=== PATIENT | male | born 1980 | race Two or more races ===

== ENCOUNTER 2022-03-16 12:04 | Emergency (ER) | payer MEDICAID, SELFPAY ==
[2022-03-16 12:24] VITALS: BP 101/61; PULSE 67; RESP 18; TEMP 36.9; O2SAT 98; BMI 19.7
[2022-03-16 12:44] LABS: MANUAL DIFF FLAG NO
[2022-03-16 12:54] LABS: Appearance Urine Clear; Color Urine Yellow; Glucose Urine UA Negative (Negative); Leukocyte Esterase Urine Negative (Negative); Nitrite Urine Negative (Negative); PH 5.5 (5.0-8.0); Specific Gravity - Urine >= 1.030 (1.005-1.025); Urine Blood Negative (Negative); Urine Ketones Trace mg/dL (Negative); Urine Protein Trace mg/dL (Neg-Trace)
[2022-03-16 12:56] LABS: Basophils Percent Auto 0.9 % (0-2); Eosinophils Absolute Auto 0.1 X10*3/uL (0.0-0.4); Hematocrit 43.4 % (42.0-52.0); Imm Gran Abs Auto 0.01 X10*3/uL (0.00-0.03); Imm Gran Pct Auto 0.3 % (0.0-0.4); Lymphocytes Absolute Auto 1.1 X10*3/uL (1.2-4.9); Lymphocytes Percent Auto 30.7 % (20-40); Mean Corpuscular HGB Conc 34.6 g/dl (31.0-36.0); Mean Corpuscular Hemoglobin 31.8 pg (27.0-33.0); Mean Corpuscular Volume 91.9 fL (80.0-98.0); Monocytes Absolute Auto 0.4 X10*3/uL (0.1-1.2); Monocytes Percent Auto 10.9 % (2-11); Neutrophils Absolute Auto 1.9 x10*3/uL (2.0-8.3); Neutrophils Percent Auto 53.2 % (45-73); Platelet Count 226 X10*3/uL (160-400); Red Blood Count 4.72 X10*6/uL (4.60-5.80); Red Cell Distribution Width 11.6 % (11.0-16.0); White Blood Count 3.5 X10*3/uL (4.8-10.8)
[2022-03-16 13:02] LABS: Anion Gap 15 (12-20); Blood Urea Nitrogen 17 mg/dL (9-16); Calcium 9.3 mg/dL (8.4-10.2); Carbon Dioxide 24 mmol/L (22-29); Chloride 107 mmol/L (96-108); Creatinine Clr Calc Pharmacy 84.1; Estimated Glomerular Filt Rate > 60; Glucose Random 91 mg/dL (60-115); Potassium 4.1 mmol/L (3.3-5.1); Sodium 142 mmol/L (135-145)
[2022-03-16] MEDS: Magnesium Hydrox/Alum Hydrox 30 ML ORAL.SUSP PO (14:11)
[2022-03-16] MEDS: Famotidine 20 MG TABLET PO (14:11)
[2022-03-16 14:41] LABS: Alanine Aminotransferase 22 U/L (0-40); Albumin Level 4.7 g/dL (3.5-5.0); Alkaline Phosphatase 61 U/L (39-117); Aspartate Amino Transferase 20 U/L (5-37); Bilirubin Direct 0.6 mg/dL (0.0-0.5); Bilirubin Total 1.5 mg/dL (0.0-1.0); Lipase 26 U/L (8-78); Total Protein 7.2 g/dL (6.5-8.0)
--- NOTE | 2022-03-16 14:46 | ED_ITS ---
HPI - General Adult General Chief complaint: General Medical Stated complaint: chest pains Time Seen by Provider: 03/16/22 13:38 Source: patient Mode of arrival: ambulatory History of Present Illness HPI narrative: 41-year-old male with no significant past medical history presenting to the ED complaining epigastric pain radiating up to chest x months s/p drinking coffee. Also reports rash to scrotum x years. Denies pain worsening, states is just not going away. Was previously evaluated with PCP started on Omeprazole without relief. Denies nausea, vomiting, diarrhea, chest pain, shortness of breath, dysuria, hematuria, flank pain, discharge Patient is poor historian Onset (ago): month(s) Related Data Previous Rx's Medication Instructions Recorded aluminum-mag hydroxide-simethicone 5 ml PO 5XD PRN dyspepsia #30 mL 03/16/22 200 mg-200 mg-20 mg/5 mL oral susp (Maalox Advanced) Allergies Allergy/AdvReac Type Severity Reaction Status Date / Time Penicillins [PENICILLINS] Allergy Unknown UNKNOWN Unverified 04/16/20 14:49 Review of Systems Review of Systems: Constitutional: No Fever, No Chills, No Fatigue, No Malaise ENT/Mouth: No Hearing loss, No Ear Pain, No Nasal Congestion, No sore throat, No Rhinorrhea Eyes: No Eye Pain, No Swelling, No Redness, No Vision Changes Cardiovascular: No Chest Pain, No SOB, No Palpitations Respiratory: No Cough, No Sputum, No Dyspnea Gastrointestinal: No Nausea, No Vomiting, No Diarrhea, No Constipation, + Abdominal pain Genitourinary: No irregular bleeding, No Dysuria, No Urinary Frequency, No Hematuria, No Urinary Incontinence/retention, No Urgency, No Flank Pain, No Urinary Flow Changes, No Hesitancy Musculoskeletal: No joint pain, No Myalgias, No Joint Swelling Skin: + Skin Lesions, No rash Neuro: No Weakness, No Headache Yes all other systems are reviewed and are negative Constitutional: Constitutional: Reports as per [facility] Past Medical History Attestation statement: The following information was validated with the patient. Social History Social History Advance Directives: No Advance Directives Information Provided: No Physical Exam ED Vital Signs: Vital Signs - 24 hr 03/16/22 12:24 Temperature 98.4 F Pulse Rate 67 Respiratory Rate 18 Blood Pressure 101/61 Pulse Oximetry 98 Oxygen Delivery Method Room Air BMI result Body Mass Index 19.7 Const General: cooperative, healthy appearing and no acute distress Orientation/consciousness: patient oriented x3 Limitations: no limitations HENMT Head: Yes normal to inspection and Yes atraumatic Ears: hearing grossly normal bilaterally General nose exam: Normal external nose present Face and sinus: Yes normal facial exam Eyes General: appearance normal, both eyes and all related structures EOM: EOMs intact bilaterally Neck Neck: Yes normal visual inspection and Yes no meningeal signs Resp Effort & Inspection: normal respiratory effort and no respiratory distress Auscultation: clear to auscultation bilaterally Cardio Rate: regular rate Heart sounds: S1 normal heart sound present and S2 normal heart sound present GI Inspection: Yes normal to inspection Palpation (GI): Soft to palpation, nontender, no guarding and not rigid Other: No appreciable rash/lesions/erythema or swelling General: Yes no CVA tenderness Penis: normal penis Scrotum: scrotum normal, not erythematous and no ulcerations Testes: Testes normal Back/Spine/Pelvis Back: no CVA tenderness Skin Rashes: no rashes Wounds: no wounds Neuro General: patient oriented x3, tone normal and no meningeal signs Gait exam (Neuro): Normal gait present Extrem General: Yes normal to inspection Course Course Course Narrative: -leukopenia. T bili and D bili mildly elevated. Troponin negative, labs otherwise unremarkable -UA negative Medical Decision Making [facility] Narrative Medical decision making narrative: 41-year-old male with no significant past medical history presenting to the ED complaining epigastric pain radiating up to chest x months s/p drinking coffee. Also reports rash to scrotum x years. On exam vital signs stable, NAD, abdomen soft/nontender, no facial rash shoes area. Concern for GERD/gastritis. Low suspicion for pancreatitis/cholecystitis/lithiasis or appendicitis/diverticulitis. Symptoms atypical for ACS. Low suspicion for STI, no evidence of cellulitis Plan: labs, Recommended continuation of omeprazole, will add Maalox and recommended PCP follow-up Medical Records Medical records reviewed: Yes I reviewed the patient's medical records. Lab Data Lab results reviewed: Yes I reviewed the patient's lab results. Result diagrams: 03/16/22 12:36 03/16/22 12:36 Labs: Lab Results 03/16/22 03/16/22 03/16/22 Range/Units 12:36 12:36 12:36 WBC 3.5 L (4.8-10.8) X10*3/uL RBC 4.72 (4.60-5.80) X10*6/uL Hgb 15.0 (14.0-18.0) g/dl Hct 43.4 (42.0-52.0) % MCV 91.9 (80.0-98.0) fL MCH 31.8 (27.0-33.0) pg MCHC 34.6 (31.0-36.0) g/dl RDW 11.6 (11.0-16.0) % Plt Count 226 (160-400) X10*3/uL MPV 11.0 (9.4-12.4) fL Immature Gran % (Auto) 0.3 (0.0-0.4) % Neut % (Auto) 53.2 (45-73) % Lymph % (Auto) 30.7 (20-40) % [place] % (Auto) 10.9 (2-11) % Eos % (Auto) 4.0 (0-4) % Baso % (Auto) 0.9 (0-2) % Lymph # (Auto) 1.1 L (1.2-4.9) X10*3/uL [place] # (Auto) 0.4 (0.1-1.2) X10*3/uL Eos # (Auto) 0.1 (0.0-0.4) X10*3/uL Baso # (Auto) 0.0 (0.0-0.2) X10*3/uL Abs Immat Gran (auto) 0.01 (0.00-0.03) X10*3/uL Absolute Neuts (auto) 1.9 L (2.0-8.3) x10*3/uL Absolute Nucleated RBC 0.000 (0.0-0.012) X10*3/uL Nucleated RBC % (auto) 0.0 (0.0-0.2) /100WBC Sodium 142 (135-145) mmol/L Potassium 4.1 (3.3-5.1) mmol/L Chloride 107 (96-108) mmol/L Carbon Dioxide 24 (22-29) mmol/L Anion Gap 15 (12-20) BUN 17 H (9-16) mg/dL Creatinine 0.87 (0.5-1.4) mg/dL Estim Creat Clear Calc 84.1 Estimated GFR > 60 Random Glucose 91 (60-115) mg/dL Calcium 9.3 (8.4-10.2) mg/dL Total Bilirubin 1.5 H (0.0-1.0) mg/dL Direct Bilirubin 0.6 H (0.0-0.5) mg/dL AST 20 (5-37) U/L ALT 22 (0-40) U/L Alkaline Phosphatase 61 (39-117) U/L Total Protein 7.2 (6.5-8.0) g/dL Albumin 4.7 (3.5-5.0) g/dL Lipase 26 (8-78) U/L Urine Color Yellow Urine Appearance Clear Urine pH 5.5 (5.0-8.0) Ur Specific [place] >= 1.030 H (1.005-1.025) Urine Protein Trace (Neg-Trace) mg/dL Urine Glucose (UA) Negative (Negative) mg/dL Urine Ketones Trace (Negative) mg/dL Urine Blood Negative (Negative) Urine Nitrite Negative (Negative) Ur Leukocyte Esterase Negative (Negative) Discharge Plan Discharge Clinical Impression: Epigastric pain Patient Disposition: Home, Self-Care Instructions: Epigastric Pain (ED) Additional Instructions: your blood work was reassuring Continue taking previously prescribed omeprazole. In addition start taking Maalox. Avoid spicy foods, sweets, chocolate. eat 1 hour before lying down Follow-up with GI. If symptoms persist or worsen return to the emergency department. Prescriptions: New alum-mag hydroxide-simeth [Maalox Advanced] 200-200-20 mg/5 mL suspension 5 ml PO 5XD PRN (Reason: dyspepsia) Qty: 30 0RF Rx Instructions: administer between meals and at bedtime Referrals: [facility] [Primary Care Provider] - Jsos Simeon [Physician] - 1 week (as needed)
[2022-03-16 14:53] LABS: Troponin-I High Sensitivity < 3.5 ng/L (<3.5-35.0)
== END 2022-03-16 15:28 | disposition home or self-care (01) ==
PROVIDERS: Physician Assistant; Emergency Provider Emergency Medicine
DX: R10.13 Epigastric pain (principal); D72.819 Decreased white blood cell count, unspecified
CPT/HCPCS: 36415; 80048; 80076; 81003; 83690; 84484; 85025; 99283

== ENCOUNTER 2022-03-28 11:45 | Emergency (ER) | payer MEDICAID, SELFPAY ==
--- NOTE | ~2022-03-28 | US_ITS ---
EXAMINATION: US SCROTUM CLINICAL INFORMATION: Pain, redness and swelling. COMPARISON: None TECHNIQUE: A sonogram of the scrotum was performed assessing mckeon-scale appearance and color Doppler flow. Spectral Doppler analysis of the arterial and venous flow were performed in the testes bilaterally. FINDINGS: RIGHT: Right testicle measures 3.3 x 1.7 x 2.8 cm, volume 9 mL. No focal testicular parenchymal lesions are visualized. Spectral Doppler analysis of the arterial and venous flow is normal in the right testis. Right epididymal head is normal in size. No right hydrocele or varicocele is seen. Right epididymal Doppler flow is normal. LEFT: Left testicle measures 3 x 1.5 x 2.8 cm, volume 6 mL. No focal testicular parenchymal lesions are visualized. Spectral Doppler analysis of the arterial and venous flow is normal in the left testis. Left epididymal head is normal in size. There are 2 left epididymal head cysts measuring 2 and 3 mm. No left hydrocele or varicocele is seen. Left epididymal Doppler flow is normal. US/US scrotum doppler IMPRESSION: Small testicles. 2 small left epididymal head cysts. Otherwise unremarkable exam.
--- NOTE | ~2022-03-28 | US_ITS ---
EXAMINATION: US SCROTUM CLINICAL INFORMATION: Pain, redness and swelling. COMPARISON: None TECHNIQUE: A sonogram of the scrotum was performed assessing mckeon-scale appearance and color Doppler flow. Spectral Doppler analysis of the arterial and venous flow were performed in the testes bilaterally. FINDINGS: RIGHT: Right testicle measures 3.3 x 1.7 x 2.8 cm, volume 9 mL. No focal testicular parenchymal lesions are visualized. Spectral Doppler analysis of the arterial and venous flow is normal in the right testis. Right epididymal head is normal in size. No right hydrocele or varicocele is seen. Right epididymal Doppler flow is normal. LEFT: Left testicle measures 3 x 1.5 x 2.8 cm, volume 6 mL. No focal testicular parenchymal lesions are visualized. Spectral Doppler analysis of the arterial and venous flow is normal in the left testis. Left epididymal head is normal in size. There are 2 left epididymal head cysts measuring 2 and 3 mm. No left hydrocele or varicocele is seen. Left epididymal Doppler flow is normal. US/US scrotum IMPRESSION: Small testicles. 2 small left epididymal head cysts. Otherwise unremarkable exam.
[2022-03-28 11:51] VITALS: BP 104/68; PULSE 69; RESP 18; TEMP 37.2; O2SAT 100; BMI 20.5
--- NOTE | 2022-03-28 17:08 | ED_ITS ---
HPI - Male Genitourinary General Chief complaint: Urogenital-Male Stated complaint: Testicle issues Time Seen by Provider: 03/28/22 17:08 History of Present Illness HPI Narrative: Patient complains of redness and itching under 4 scan and also on scrotum for over a week, he can retract the foreskin but it sometimes feels sticky He has no testicular pain or swelling, he has no discharge no dysuria no change to urinary habits Related Data Previous Rx's Medication Instructions Recorded aluminum-mag hydroxide-simethicone 5 ml PO 5XD PRN dyspepsia #30 mL 03/16/22 200 mg-200 mg-20 mg/5 mL oral susp (Maalox Advanced) clotrimazole 1 % topical cream 1 appl topical BID PRN rash #30 03/28/22 grams hydrocortisone 1 % topical cream 1 appl topical TID PRN rash #28.4 03/28/22 grams Allergies Allergy/AdvReac Type Severity Reaction Status Date / Time Penicillins [PENICILLINS] Allergy Unknown UNKNOWN Unverified 04/16/20 14:49 Review of Systems Review of Systems: Positive for rash under foreskin and on scrotum Negatives are no fever no chills no dizziness no weakness no headache no abdo ramez pain no nausea or vomiting no burning with urination no frequency of urination no penile discharge no testicular pain or swelling no other ulcerations or lesions no other rash Yes all other systems are reviewed and are negative [facility] Past Medical History Source: nursing notes reviewed Social History Social History Advance Directives: No Advance Directives Information Provided: No Physical Exam Vital Signs: Vital Signs: Last Vital Signs Temp 98.9 F 03/28/22 11:51 Pulse 69 03/28/22 11:51 Resp 18 03/28/22 11:51 BP 104/68 03/28/22 11:51 Pulse Ox 100 03/28/22 11:51 O2 Del Method 03/28/22 11:51 BMI result Body Mass Index 20.5 General appearance is comfortable no distress Head is normocephalic atraumatic Neck is supple Respiratory distress Abdomen soft nontender Genital exam there is some whitish material on the head of the penis under the foreskin the foreskin retracts easily, there is also some mild redness but no warmth or tenderness On the scrotum there is also an area of very mild redness which is nontender not warm there are no wounds no lesions no ulcerations no vesicular rash, no discharge no testicular tenderness no testicular swelling Extremities full range of motion x4 Course Course Course Narrative: Patient is treated with creams for mild balanitis, advised to follow with urologist for possible circumcision Rash on scrotum is a mild red itchy rash possibly heat rash and he is recommended to put the same creams on there Discharge Plan Discharge Clinical Impression: Balanitis Patient Disposition: Home, Self-Care Additional Instructions: Apply creams as directed You may need a circumcision so follow with urologist , you may need referral from her primary care doctor Return any time if worse Prescriptions: New clotrimazole 1 % cream 1 appl topical BID PRN (Reason: rash) Qty: 30 0RF hydrocortisone 1 % cream 1 appl topical TID PRN (Reason: rash) Qty: 28.4 0RF No Action alum-mag hydroxide-simeth [Maalox Advanced] 200-200-20 mg/5 mL suspension 5 ml PO 5XD PRN (Reason: dyspepsia) Qty: 30 0RF Rx Instructions: administer between meals and at bedtime Referrals: Walt Marie MD [Physician] - (Patient with balanitis, may need circumcision)
[2022-03-28 17:23] LABS: Glucose, Whole Blood 68 mg/dL (60-115)
== END 2022-03-28 17:36 | disposition home or self-care (01) ==
PROVIDERS: Emergency Provider Emergency Medicine
DX: N48.1 Balanitis (principal); R21 Rash and other nonspecific skin eruption
CPT/HCPCS: 76870; 82947; 93975; 99282; 99284

== ENCOUNTER 2022-04-05 11:26 | Emergency (ER) | payer MEDICAID, SELFPAY ==
[2022-04-05 11:31] VITALS: BP 109/60; PULSE 69; RESP 16; TEMP 36.2; O2SAT 100; BMI 22.3
--- NOTE | 2022-04-05 12:08 | ED.GENADULT ---
HPI - General Adult General Chief complaint: General Medical Stated complaint: Chest pain Time Seen by Provider: 04/05/22 12:07 Source: patient Mode of arrival: ambulatory Limitations: no limitations History of Present Illness HPI narrative: Patient is a 41 year old male presenting to the emergency department today with acid reflux. Patient states that he was seen a little while ago for the same thing and was given medication that helped but he ran out of the medication and he would like more. Patient denies any dizziness, lightheadedness, abdominal pain, nausea, vomiting, fever, chills, blurry vision, double vision, loss of vision, chest pain, difficulty breathing, shortness of breath, back pain, night sweats, pain with urination, increased urinary frequency, increased urinary urgency, blood in his urine or stool, syncope or a near syncopal episode, recent trauma or falls, bowel incontinence, bladder incontinence, bowel retention, bladder retention, or any other complaints at this time. Radiation: non-radiation Severity: mild Severity scale (1-10): 2 Quality: burning Pain Consistency: intermittent Relieving factors: none Exacerbating factors: none Associated symptoms: denies other symptoms Treatments prior to arrival: none Related Data Previous Rx's Medication Instructions Recorded aluminum-mag hydroxide-simethicone 5 ml PO 5XD PRN dyspepsia #30 mL 03/16/22 200 mg-200 mg-20 mg/5 mL oral susp (Maalox Advanced) clotrimazole 1 % topical cream 1 appl topical BID PRN rash #30 03/28/22 grams hydrocortisone 1 % topical cream 1 appl topical TID PRN rash #28.4 03/28/22 grams aluminum-mag hydroxide-simethicone 5 ml PO 5XD PRN indigestion #355 mL 04/05/22 200 mg-200 mg-20 mg/5 mL oral susp (Maalox Advanced) pantoprazole 40 mg tablet,delayed 40 mg PO DAILY #30 tabs 04/05/22 release (Protonix) Allergies Allergy/AdvReac Type Severity Reaction Status Date / Time Penicillins [PENICILLINS] Allergy Unknown UNKNOWN Verified 04/05/22 11:31 Review of Systems Constitutional: Constitutional: Reports no additional constitutional complaints, Denies chills, Denies fever(s) and Denies night sweats Eyes: Eyes: Reports no additional eye complaints, Denies blurry vision, Denies change in vision, Denies diplopia, Denies eye discharge, Denies loss of vision and Denies eye pain ENT: Denies dizziness Cardiovascular: Cardiovascular: Reports no additional cardiovascular complaints, Denies chest pain, Denies lightheadedness, Denies Loss of Consciousness and Denies dyspnea Respiratory: Respiratory: Reports no additional respiratory complaints and Denies dyspnea Gastrointestinal: Gastrointestinal: Reports no additional gastrointestinal complaints, Denies abdominal pain, Denies melena, Denies hematochezia, Denies change in bowel habits and Denies change in stool character Genitourinary: Genitourinary: Reports no additional male genitourinary complaints, Denies hematuria, Denies oliguria, Denies difficulty urinating, Denies dysuria, Denies urinary frequency, Denies urinary hesitancy, Denies urinary incontinence and Denies urinary urgency Musculoskeletal: Musculoskeletal: Reports no additional musculoskeletal complaints, Denies numbness and Denies tingling Neurologic: Denies dizziness, Denies loss of vision, Denies numbness and Denies tingling Psychiatric: Psychiatric: Reports no additional psychiatric complaints Endocrine: Endocrine: Reports no additional endocrine complaints Hematologic/Lymphatic: Hematologic/Lymphatic: Reports no additional hematologic/lymphatic complaints Allergic/Immunologic: Allergic/Immunologic: Reports no additional allergic/immunologic complaints [facility] Past Medical History Attestation statement: The following information was validated with the patient. Source: old records reviewed Social History Social History Advance Directives: No Advance Directives Information Provided: Yes Physical Exam ED Vital Signs: Vital Signs - 24 hr 04/05/22 11:31 Temperature 97.1 F Pulse Rate 69 Respiratory Rate 16 Blood Pressure 109/60 Pulse Oximetry 100 Oxygen Delivery Method Room Air BMI result Body Mass Index 22.3 Const General: cooperative, no acute distress, alert and awake Nutritional Appearance: well nourished Orientation/consciousness: patient oriented x3 Limitations: no limitations HENMT Head: Yes normal to inspection and Yes atraumatic Ears: hearing grossly normal bilaterally and external ears normal General nose exam: Normal external nose present, no nasal discharge noted and no epistaxis Face and sinus: Yes normal facial exam, No abrasion and No laceration Mouth: Normal oral and palatal mucosa present, no drooling and no muffled voice Eyes General: appearance normal, both eyes and all related structures Periorbital: periorbital findings normal Eyelids: Yes eyelids normal Conjunctivae: conjunctivae normal Pupils: Equal, round and reactive pupils present EOM: EOMs intact bilaterally Neck Neck: Yes normal visual inspection, Yes full ROM and Yes no lymphadenopathy Chest Chest palpation & inspection: normal inspection of the chest Resp Effort & Inspection: normal respiratory effort and able to speak in complete sentences Auscultation: clear to auscultation bilaterally Cardio Rate: regular rate Rhythm: regular rhythm GI Inspection: Yes normal to inspection Neuro General: patient oriented x3 and moves all extremities Cranial nerves: Yes Equal, round and reactive pupils present Cognition (Neuro): normal cognition Motor exam (neuro): 5/5 motor strength present throughout Sensory Exam: Normal double simultaneous stimulation for sensation Coordination: [id number] test normal Extrem General: Yes normal to inspection, Yes full ROM and Yes capillary refill normal Psych Appearance: grossly normal Mental Status: mental status grossly normal Affect: normal affect Attitude: cooperative Thought process: Normal thought process present Thought content: Normal thought content present Insight: Good insight present (Psych) Medical Decision Making [facility] Narrative Medical decision making narrative: Patient is a 41 year old male presenting to the emergency department today with acid reflux. Patient's physical exam was unremarkable. I explained my physical exam findings to the patient. I answered all questions asked by the patient. I stressed the importance of the patient taking his medication as prescribed. I stressed the importance of the patient following up with his primary care provider and a GI specialist. I stressed the importance of the patient returning to the emergency department immediately if her symptoms were to worsen or if she were to develop any dizziness, shortness of breath, difficulty breathing, chest pain, blurry vision, loss of vision, nausea, vomiting, abdominal pain, fever, chills, back pain, or any other complaints. Patient verbalized agreement and understanding with this treatment plan and discharge. Medical Records Medical records reviewed: Yes I reviewed the patient's medical records. Discharge Plan Discharge Clinical Impression: Chronic GERD Patient Disposition: Home, Self-Care Instructions: Gastroesophageal Reflux Disease (ED) Additional Instructions: Follow up with your primary care provider and a GI specialist. Return to the emergency department immediately if your symptoms worsen or if you develop any dizziness, shortness of breath, difficulty breathing, chest pain, blurry vision, loss of vision, nausea, vomiting, abdominal pain, fever, chills, back pain, or any other complaints. Prescriptions: New alum-mag hydroxide-simeth [Maalox Advanced] 200-200-20 mg/5 mL suspension 5 ml PO 5XD PRN (Reason: indigestion) Qty: 355 0RF Rx Instructions: administer between meals and at bedtime pantoprazole [Protonix] 40 mg tablet,delayed release (DR/EC) 40 mg PO DAILY Qty: 30 0RF No Action alum-mag hydroxide-simeth [Maalox Advanced] 200-200-20 mg/5 mL suspension 5 ml PO 5XD PRN (Reason: dyspepsia) Qty: 30 0RF Rx Instructions: administer between meals and at bedtime clotrimazole 1 % cream 1 appl topical BID PRN (Reason: rash) Qty: 30 0RF hydrocortisone 1 % cream 1 appl topical TID PRN (Reason: rash) Qty: 28.4 0RF Referrals: [facility] [place] [facility]Provider Group] Center,[facility] [Primary Care Provider] - Interventions: ED Discharge Assessment Last Done: 04/05/22 12:39 Discharge Date/Time: 04/05/22 12:42 Print Language: Czech
== END 2022-04-05 12:42 | disposition home or self-care (01) ==
PROVIDERS: Emergency Provider Emergency Medicine
DX: K21.9 Gastro-esophageal reflux disease without esophagitis (principal); R07.89 Other chest pain; Z79.899 Other long term (current) drug therapy
CPT/HCPCS: 99282; 99283

== ENCOUNTER 2022-04-20 09:09 | Emergency (ER) | payer MEDICAID, SELFPAY ==
[2022-04-20 09:45] VITALS: BP 104/69; PULSE 66; RESP 15; TEMP 35.8; O2SAT 100; BMI 22.3
--- NOTE | 2022-04-20 10:42 | ED.MALEGU ---
HPI - Male Genitourinary General Chief complaint: Urogenital-Male Stated complaint: rash from medication Time Seen by Provider: 04/20/22 10:08 Source: patient Mode of arrival: ambulatory Limitations: no limitations History of Present Illness HPI Narrative: 41 yo male no PMH here with c/o penile rash seen on 04/05 started on clotrimazole and hydrocortisone states his penile area looks better but still feels there are bumps and redness to his scrotum. He denies fevers, abdominal pain. No issues urinating. He states he completed all topical therapies. He had sex 2 months ago with a condom. MD Complaint: other (rash on scrotum) Onset (ago): week(s) (3) Duration: intermittent Location: penis, right testicle and left testicle Severity: mild Quality: other (itching) Relieving factors: none Exacerbating factors: none Associated symptoms: Reports denies other symptoms Related Data Previous Rx's Medication Instructions Recorded aluminum-mag hydroxide-simethicone 5 ml PO 5XD PRN dyspepsia #30 mL 03/16/22 200 mg-200 mg-20 mg/5 mL oral susp (Maalox Advanced) clotrimazole 1 % topical cream 1 appl topical BID PRN rash #30 03/28/22 grams hydrocortisone 1 % topical cream 1 appl topical TID PRN rash #28.4 03/28/22 grams aluminum-mag hydroxide-simethicone 5 ml PO 5XD PRN indigestion #355 mL 04/05/22 200 mg-200 mg-20 mg/5 mL oral susp (Maalox Advanced) pantoprazole 40 mg tablet,delayed 40 mg PO DAILY #30 tabs 04/05/22 release (Protonix) mupirocin 2 % topical ointment 1 appl topical BID 7 days #15 grams 04/20/22 Allergies Allergy/AdvReac Type Severity Reaction Status Date / Time Penicillins [PENICILLINS] Allergy Unknown UNKNOWN Verified 04/05/22 11:31 Review of Systems Review of Systems: Constitutional : No Fever, No Chills ENT/Mouth : No sore throat, No Rhinorrhea Eyes: No Eye Pain, No Swelling, No Redness Cardiovascular : No Chest Pain, No SOB Respiratory : No Cough, No Sputum Gastrointestinal : No Nausea, No Vomiting, No Diarrhea, No abdominal Pain Genitourinary : No Dysuria, No Hematuria Musculoskeletal : No joint pain, No Myalgias, No Joint Swelling Skin : No Skin Lesions, positive skin rash Neuro : No Weakness, No Numbness, No Headache PMFSH Past Medical History Medical History No pertinent past medical history Social History Social History (Updated 04/20/22 @ 11:10 by Melba hCung DO) Patient Tobacco Use Status: Never used Tobacco Advance Directives: No Advance Directives Information Provided: No Physical Exam Vital Signs: Vital Signs: Last Vital Signs Temp 96.4 F L 04/20/22 09:45 Pulse 66 04/20/22 09:45 Resp 15 04/20/22 09:45 BP 104/69 04/20/22 09:45 Pulse Ox 100 04/20/22 09:45 O2 Del Method 04/20/22 09:45 BMI result Body Mass Index 22.3 Appearance: Alert. Oriented X3. No acute distress. Eyes: Pupils equal, round and reactive to light. ENT: Pharynx normal. Neck: Normal inspection. Neck supple. CVS: Normal heart rate and rhythm. Pulses normal. Respiratory: No respiratory distress. Breath sounds normal. Abdomen: Soft and non-tender. : uncircumcised normal appearing penis no rash, scrotum no warmth, swelling, small red papule noted on midline otherwise it appears normal Skin: Skin warm and dry. Normal skin color. Extremities: No lower extremity edema. Neuro: Oriented X 3. No motor deficit. No sensory deficit. MDM - Male Genitourinary MDM Narrative Medical decision making narrative: 41 yo male with recent balanitis completed cream penis appears normal - he is c/o redness and lesions on scrotum at this time they are flat and no signs of cellulitis. Will test for syphilils and start on mupirocin. Discharge Plan Discharge Clinical Impression: Rash Patient Disposition: Home, Self-Care Instructions: Acute Rash (ED) Additional Instructions: return to ED for any worsening symptoms or concerns you were tested for syphillis if positive we will call you please practice safe sex Prescriptions: New mupirocin 2 % ointment 1 appl topical BID 7 Days Qty: 15 0RF No Action alum-mag hydroxide-simeth [Maalox Advanced] 200-200-20 mg/5 mL suspension 5 ml PO 5XD PRN (Reason: indigestion) Qty: 355 0RF Rx Instructions: administer between meals and at bedtime pantoprazole [Protonix] 40 mg tablet,delayed release (DR/EC) 40 mg PO DAILY Qty: 30 0RF alum-mag hydroxide-simeth [Maalox Advanced] 200-200-20 mg/5 mL suspension 5 ml PO 5XD PRN (Reason: dyspepsia) Qty: 30 0RF Rx Instructions: administer between meals and at bedtime clotrimazole 1 % cream 1 appl topical BID PRN (Reason: rash) Qty: 30 0RF hydrocortisone 1 % cream 1 appl topical TID PRN (Reason: rash) Qty: 28.4 0RF Stand Alone Forms: Work/School Release
[2022-04-20 12:05] LABS: Syphilis Screen Nonreactive (Nonreactive)
== END 2022-04-20 11:52 | disposition home or self-care (01) ==
PROVIDERS: Emergency Provider Emergency Medicine
DX: R21 Rash and other nonspecific skin eruption (principal)
CPT/HCPCS: 36415; 86780; 99283

== ENCOUNTER 2022-04-29 09:08 | Emergency (ER) | payer MEDICAID, SELFPAY ==
[2022-04-29 09:17] VITALS: BP 118/69; PULSE 65; RESP 14; TEMP 36.4; O2SAT 100; BMI 24.0
--- NOTE | 2022-04-29 09:22 | ED_ITS ---
HPI - General Adult General Chief complaint: General Medical Stated complaint: Rash Time Seen by Provider: 04/29/22 09:22 Source: patient Mode of arrival: ambulatory Limitations: no limitations History of Present Illness HPI narrative: 41-year-old male presents to the ER for evaluation of a red and itchy rash of his penis and testicles. He was seen here on March 28 for balanitis, was prescribed steroids and anti fungal cream. He also presented back here on April 20 with possible folliculitis and was prescribed mupirocin. He reports the mupirocin helped his symptoms and returned his skin color to normal. He reports the last 2 days after running out of the mupirocin his testicles and posterior penis are red and itchy. He denies any testicular pain. No urethral discharge. Denies any lesions. MD complaint: testicular rash Onset (ago): day(s) Location: genitals Radiation: non-radiation Severity: mild Quality: other (itching) Relieving factors: medication Exacerbating factors: none Associated symptoms: denies other symptoms Treatments prior to arrival: none Related Data Previous Rx's Medication Instructions Recorded aluminum-mag hydroxide-simethicone 5 ml PO 5XD PRN dyspepsia #30 mL 03/16/22 200 mg-200 mg-20 mg/5 mL oral susp (Maalox Advanced) clotrimazole 1 % topical cream 1 appl topical BID PRN rash #30 03/28/22 grams hydrocortisone 1 % topical cream 1 appl topical TID PRN rash #28.4 03/28/22 grams aluminum-mag hydroxide-simethicone 5 ml PO 5XD PRN indigestion #355 mL 04/05/22 200 mg-200 mg-20 mg/5 mL oral susp (Maalox Advanced) pantoprazole 40 mg tablet,delayed 40 mg PO DAILY #30 tabs 04/05/22 release (Protonix) mupirocin 2 % topical ointment 1 appl topical BID 7 days #15 grams 04/20/22 mupirocin 2 % topical ointment 1 appl topical BID #15 grams 04/29/22 Allergies Allergy/AdvReac Type Severity Reaction Status Date / Time Penicillins [PENICILLINS] Allergy Unknown UNKNOWN Verified 04/05/22 11:31 Review of Systems Review of Systems: Constitutional: No Fever, No Chills ENT/Mouth: No sore throat, No Rhinorrhea, No Swallowing Difficulty Eyes: No Eye Pain, No Swelling, No Redness Cardiovascular: No Chest Pain, No SOB, No Orthopnea, No Edema Respiratory: No Cough, No Sputum, No Wheezing, No dyspnea Gastrointestinal: No Nausea, No Vomiting, No Diarrhea, No abdominal Pain Genitourinary: No Dysuria, No Urinary Frequency, No Hematuria Musculoskeletal: No joint pain, No Myalgias Skin: No Skin Lesions, + rash Psych: + Anxiety/Panic, No Depression Heme/Lymph: No Bruising, No Lymphadenopathy PMFSH Past Medical History Medical History No pertinent past medical history Social History Social History (Updated 04/20/22 @ 11:10 by Melba Chung DO) Patient Tobacco Use Status: Never used Tobacco Advance Directives: No Advance Directives Information Provided: Yes Physical Exam ED Vital Signs: Vital Signs - 24 hr 04/29/22 09:17 Temperature 97.6 F Pulse Rate 65 Respiratory Rate 14 Blood Pressure 118/69 Pulse Oximetry 100 Oxygen Delivery Method Room Air BMI result Body Mass Index 24.0 Appearance: Alert. Oriented X3. No acute distress. HEENT: normal inspection CVS: Normal heart rate and rhythm. Pulses normal. Respiratory: No respiratory distress. Skin: Skin warm and dry. Normal skin color. Normal skin turgor. No rashes. : normal inspection of external genitalia, uncircumcised penis with easily retractable foreskin, underside of the penile shaft and anterior testicles with mild generalized blanching erythema, no pustules, no rash, no warmth. Extremities: normal inspection. Neuro: Oriented X 3. grossly normal, nonfocal Course Course Course Narrative: 41-year-old male presents to the ER for evaluation of a pruritic and erythematous rash on his genitals. Upon inspection there does not appear to be any acute abnormality. He was seen here several times for this in the last 1 mo nth. There is no evidence of acute or active of balanitis, no evidence of cellulitis. No folliculitis. He is requesting additional mupirocin because this made his skin coloration normal, it is a benign medication and we can give a short course of this but he was advised to follow up with Urology for further evaluation and treatment. Stable for discharge. Discharge Plan Discharge Clinical Impression: Rash of genitalia Patient Disposition: Home, Self-Care Instructions: Acute Rash (ED) Additional Instructions: Your exam today appeared normal. You can use the prescribed cream to attempt to improve the redness but this may not improve. Recommend following up with Urology for further evaluation and treatment. Prescriptions: New mupirocin 2 % ointment 1 appl topical BID Qty: 15 0RF No Action alum-mag hydroxide-simeth [Maalox Advanced] 200-200-20 mg/5 mL suspension 5 ml PO 5XD PRN (Reason: indigestion) Qty: 355 0RF Rx Instructions: administer between meals and at bedtime pantoprazole [Protonix] 40 mg tablet,delayed release (DR/EC) 40 mg PO DAILY Qty: 30 0RF mupirocin 2 % ointment 1 appl topical BID 7 Days Qty: 15 0RF alum-mag hydroxide-simeth [Maalox Advanced] 200-200-20 mg/5 mL suspension 5 ml PO 5XD PRN (Reason: dyspepsia) Qty: 30 0RF Rx Instructions: administer between meals and at bedtime clotrimazole 1 % cream 1 appl topical BID PRN (Reason: rash) Qty: 30 0RF hydrocortisone 1 % cream 1 appl topical TID PRN (Reason: rash) Qty: 28.4 0RF Referrals: [facility] [Provider Group] Interventions: ED Discharge Assessment Last Done: 04/29/22 10:11 Discharge Date/Time: 04/29/22 10:05
== END 2022-04-29 10:05 | disposition home or self-care (01) ==
PROVIDERS: Emergency Provider Emergency Medicine
DX: R21 Rash and other nonspecific skin eruption (principal); N50.812 Left testicular pain; N50.811 Right testicular pain; Z79.899 Other long term (current) drug therapy
CPT/HCPCS: 99283

== ENCOUNTER 2022-05-09 09:35 | Emergency (ER) | payer MEDICAID, SELFPAY ==
[2022-05-09 09:56] VITALS: BP 100/60; PULSE 68; RESP 16; TEMP 36.9; O2SAT 98; BMI 22.3
--- NOTE | 2022-05-09 10:17 | ED_ITS ---
HPI - General Adult General Chief complaint: General Medical Stated complaint: med refill Time Seen by Provider: 05/09/22 10:12 Source: patient Mode of arrival: ambulatory Limitations: no limitations History of Present Illness HPI narrative: This is a 41-year-old male who presents seeking refill firm appear is seen. Patient has had several visits to our emergency room for balanitis. He was initially prescribed hydrocortisone and clotrimazole all which he reported did not help and so he had mupirocin added. He also had labs and testing for syphilis which are unremarkable during 1 of his visits. He had been recommended on each visit to follow-up with Urology the patient tells me he has not done so. He has not tried calling for an appointment. Patient tells me the rash on his penis is resolved but he continues to have a rash and itching over his testicles. No penile discharge. No testicular pain. No urinary symptoms, fevers or chills. Related Data Previous Rx's Medication Instructions Recorded aluminum-mag hydroxide-simethicone 5 ml PO 5XD PRN dyspepsia #30 mL 03/16/22 200 mg-200 mg-20 mg/5 mL oral susp (Maalox Advanced) clotrimazole 1 % topical cream 1 appl topical BID PRN rash #30 03/28/22 grams hydrocortisone 1 % topical cream 1 appl topical TID PRN rash #28.4 03/28/22 grams aluminum-mag hydroxide-simethicone 5 ml PO 5XD PRN indigestion #355 mL 04/05/22 200 mg-200 mg-20 mg/5 mL oral susp (Maalox Advanced) pantoprazole 40 mg tablet,delayed 40 mg PO DAILY #30 tabs 04/05/22 release (Protonix) mupirocin 2 % topical ointment 1 appl topical BID 7 days #15 grams 04/20/22 mupirocin 2 % topical ointment 1 appl topical BID #15 grams 04/29/22 clotrimazole 1 % topical cream 1 appl topical BID 4 weeks #45 05/09/22 grams Allergies Allergy/AdvReac Type Severity Reaction Status Date / Time Penicillins [PENICILLINS] Allergy Unknown UNKNOWN Verified 04/05/22 11:31 Review of Systems Review of Systems: Yes all other systems are reviewed and are negative Constitutional: Constitutional: Reports no additional constitutional complaints, Denies body ache(s), Denies chills, Denies fever(s), Denies headache(s) and Denies weakness Eyes: Eyes: Reports no additional eye complaints and Denies change in vision ENT: Reports system reviewed and no additional complaints, except as documented, Denies dizziness, Denies headache(s), Denies nasal congestion, Denies nasal discharge and Denies neck pain Cardiovascular: Cardiovascular: Reports no additional cardiovascular complaints, Denies chest pain, Denies leg edema and Denies dyspnea Respiratory: Respiratory: Reports no additional respiratory complaints, Denies cough and Denies dyspnea Gastrointestinal: Gastrointestinal: Reports no additional gastrointestinal complaints, Denies abdominal pain, Denies diarrhea, Denies nausea and Denies vomiting Genitourinary: Genitourinary: Denies urinary incontinence Musculoskeletal: Musculoskeletal: Reports no additional musculoskeletal complaints, Denies back pain, Denies arthralgias, Denies joint swelling, Denies neck pain, Denies numbness and Denies tingling Integumentary/Breasts: Skin/Breast: Reports system reviewed and no additional complaints, except as docu and Reports rash Neurologic: Reports system reviewed and no additional complaints, except as documented, Denies dizziness, Denies headache(s), Denies numbness, Denies tingling and Denies weakness PMF Past Medical History Attestation statement: The following information was validated with the patient. Source: old records reviewed and nursing notes reviewed Medical History No pertinent past medical history Social History Social History Patient Tobacco Use Status: Never used Tobacco Advance Directives: No Advance Directives Information Provided: No Physical Exam ED Vital Signs: Vital Signs - 24 hr 05/09/22 09:56 Temperature 98.4 F Pulse Rate 68 Respiratory Rate 16 Blood Pressure 100/60 Pulse Oximetry 98 Oxygen Delivery Method Room Air BMI result Body Mass Index 22.3 Const General: cooperative, healthy appearing and comfortable Orientation/consciousness: patient oriented x3 Limitations: no limitations HENMT Head: Yes normal to inspection Eyes General: appearance normal, both eyes and all related structures Neck Neck: Yes normal visual inspection Chest Chest palpation & inspection: normal inspection of the chest Resp Effort & Inspection: normal respiratory effort Auscultation: clear to auscultation bilaterally Cardio Rate: regular rate Rhythm: regular rhythm Peripheral pulses: Peripheral pulses 2+ throughout Other: 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 The foreskin was retracted and the meatus is normal. The urethra and surrounding skin is also normal. I do not appreciate any rash. Over both testicles there is some erythema with excoriation Male General Exam: Yes normal external exam Penis: normal penis and uncircumcised Meatus: meatus normal Neuro General: patient oriented x3 Medical Decision Making MDM Narrative Medical decision making narrative: This is a 41-year-old male who has been seen in our emergency room several times for balanitis which he reports is improved with using topical mupricocin and is seeking a refill for same. On exam the patient has no evidence of balanitis. This seems resolved. He is reporting continued symptoms of testicular rash with itching. This is appears more consistent with tinea cruris. Patient has had negative STD testing and labs in the last month. At this time I believe he would benefit from topical clotrimazole. Recommended holding any additional mupricocin as I do not feel it is necessary. Patient denied did discussed balanitis and preventative measures such as retracted the foreskin, cleaning the area and patting dry. He can follow-up with urology for any additional episodes of balanitis for an elective circumcision as needed. Reviewed worrisome signs and symptoms with the patient and when to return to the emergency room. Comfortable discharge home. Medical Records Medical records reviewed: Yes I reviewed the patient's medical records. Lab Data Lab results reviewed: Yes I reviewed the patient's lab results. Discharge Plan Discharge Clinical Impression: Tinea cruris Patient Disposition: Home, Self-Care Instructions: Bipin Hinojosa (ED) Additional Instructions: The penis is looking good. You do not need to continue to use the mupirocin seen. You should continue to retract the foreskin and clean the penis with soap and water daily and pat dry with a towel. You should follow-up with urology for any continued itching, swelling or redness at the tip of the penis I am prescribing you a different medication to apply to the testicles only Prescriptions: New clotrimazole 1 % cream 1 appl topical BID 28 Days Qty: 45 0RF No Action alum-mag hydroxide-simeth [Maalox Advanced] 200-200-20 mg/5 mL suspension 5 ml PO 5XD PRN (Reason: indigestion) Qty: 355 0RF Rx Instructions: administer between meals and at bedtime pantoprazole [Protonix] 40 mg tablet,delayed release (DR/EC) 40 mg PO DAILY Qty: 30 0RF mupirocin 2 % ointment 1 appl topical BID 7 Days Qty: 15 0RF alum-mag hydroxide-simeth [Maalox Advanced] 200-200-20 mg/5 mL suspension 5 ml PO 5XD PRN (Reason: dyspepsia) Qty: 30 0RF Rx Instructions: administer between meals and at bedtime clotrimazole 1 % cream 1 appl topical BID PRN (Reason: rash) Qty: 30 0RF hydrocortisone 1 % cream 1 appl topical TID PRN (Reason: rash) Qty: 28.4 0RF mupirocin 2 % ointment 1 appl topical BID Qty: 15 0RF Referrals: Walt Marie MD [Physician] - 2 weeks Interventions: ED Discharge Assessment Last Done: 05/09/22 10:59 Discharge Date/Time: 05/09/22 11:00
== END 2022-05-09 11:00 | disposition home or self-care (01) ==
PROVIDERS: Emergency Provider Student in an Organized Health Care Education/Training Program
DX: B35.6 Tinea cruris (principal)
CPT/HCPCS: 99283

== ENCOUNTER 2022-05-17 09:50 | Emergency (ER) | payer MEDICAID, SELFPAY ==
[2022-05-17 09:53] VITALS: BP 134/67; PULSE 84; RESP 19; TEMP 36.6; O2SAT 98; BMI 20.3
--- NOTE | 2022-05-17 10:57 | ED.GENADULT ---
HPI - General Adult General Chief complaint: General Medical Stated complaint: med refill Time Seen by Provider: 05/17/22 10:55 Source: patient Mode of arrival: ambulatory Limitations: no limitations History of Present Illness HPI narrative: 41-year-old male presents requesting a medication refill for Maalox advanced and his pantoprazole. Patient tells me he is running out and he is unable to get in with his PCP. Denies any medical complaints at this time denies fevers, chills, chest pain, shortness of breath, nausea, vomiting abdominal pain. Related Data Previous Rx's Medication Instructions Recorded clotrimazole 1 % topical cream 1 appl topical BID PRN rash #30 03/28/22 grams hydrocortisone 1 % topical cream 1 appl topical TID PRN rash #28.4 03/28/22 grams aluminum-mag hydroxide-simethicone 5 ml PO 5XD PRN indigestion #355 mL 04/05/22 200 mg-200 mg-20 mg/5 mL oral susp (Maalox Advanced) mupirocin 2 % topical ointment 1 appl topical BID 7 days #15 grams 04/20/22 mupirocin 2 % topical ointment 1 appl topical BID #15 grams 04/29/22 clotrimazole 1 % topical cream 1 appl topical BID 4 weeks #45 05/09/22 grams aluminum-mag hydroxide-simethicone 5 ml PO 5XD PRN indigestion #355 mL 05/17/22 200 mg-200 mg-20 mg/5 mL oral susp (Maalox Advanced) pantoprazole 40 mg tablet,delayed 40 mg PO DAILY #30 tabs 05/17/22 release (Protonix) Allergies Allergy/AdvReac Type Severity Reaction Status Date / Time Penicillins [PENICILLINS] Allergy Unknown UNKNOWN Verified 04/05/22 11:31 Review of Systems Review of Systems: Constitutional : No Weight loss, No Fever, No Chills, No Fatigue, No Malaise ENT/Mouth : No sore throat, No Rhinorrhea Eyes: No Eye Pain, No Swelling, No Redness Cardiovascular : No Chest Pain, No SOB, No Dyspnea on Exertion, No Orthopnea, No Edema, No Palpitations Respiratory : No Cough, No Sputum, No Wheezing Gastrointestinal : No Nausea, No Vomiting, No Diarrhea, No Constipation, No abdominal Pain, No Hematochezia, No Melena Genitourinary : No Dysuria, No Urinary Frequency, No Hematuria, Musculoskeletal : No joint pain, No Myalgias, No Joint Swelling Skin : No Skin Lesions, No rash Neuro : No Weakness, No Numbness, No Dizziness, No Headache Psych : No Anxiety/Panic, No Depression All other systems reviewed and are negative Yes all other systems are reviewed and are negative [facility] Past Medical History Attestation statement: The following information was validated with the patient. Source: old records reviewed and nursing notes reviewed Medical History No pertinent past medical history Social History Social History Patient Tobacco Use Status: Never used Tobacco Advance Directives: No Advance Directives Information Provided: No Physical Exam ED Vital Signs: Vital Signs - 24 hr 05/17/22 09:53 Temperature 98 F Pulse Rate 84 Respiratory Rate 19 Blood Pressure 134/67 Pulse Oximetry 98 Oxygen Delivery Method Room Air BMI result Body Mass Index 20.3 vss Appearance: Alert.? Oriented X3.? No acute distress.? Head: Normocephalic, atraumatic, no step-offs or deformities Eyes: Pupils equal, round and reactive to light.? Neck: Normal inspection.? Neck supple.? CVS: Normal heart rate and rhythm.? Pulses normal.? Respiratory: No respiratory distress.? Breath sounds normal.? Abdomen: Soft and nontender.? Skin: Skin warm and dry.? Normal skin color.? Normal skin turgor.? Extremities: No lower extremity edema.? No calf ttp. 5/5 strength to bilateral upper and lower extremities Neuro: Oriented X 3.? No motor deficit.? No sensory deficit. CN 2-12 intact Medical Decision Making MDM Narrative Medical decision making narrative: 1100 41 year old male presents for med refil. PE benign Plan- refil rx. Medical Records Medical records reviewed: Yes I reviewed the patient's medical records. Lab Data Lab results reviewed: Yes I reviewed the patient's lab results. Critical Care Time Critical Care Time Critical Care Time: No Discharge Plan Discharge Clinical Impression: Medication refill Patient Disposition: Home, Self-Care Instructions: Medicine Refill (ED) Additional Instructions: Take your medications as prescribed. If you were prescribed antibiotics today, it is important that you take your medication to their entirety, do not skip any doses, do not finish them early. Follow-up with your primary care provider this week. Return to the emergency department with new or worsening symptoms. Such as fevers, chills, chest pain, shortness of breath, nausea, vomiting, dizziness, headache, vision changes, lethargy In case of emergency call 911 Follow-up with GI to further investigate GERD. Prescriptions: New pantoprazole [Protonix] 40 mg tablet,delayed release (DR/EC) 40 mg PO DAILY Qty: 30 1RF alum-mag hydroxide-simeth [Maalox Advanced] 200-200-20 mg/5 mL suspension 5 ml PO 5XD PRN (Reason: indigestion) Qty: 355 0RF Rx Instructions: administer between meals and at bedtime Discontinued pantoprazole [Protonix] 40 mg tablet,delayed release (DR/EC) 40 mg PO DAILY Qty: 30 0RF alum-mag hydroxide-simeth [Maalox Advanced] 200-200-20 mg/5 mL suspension 5 ml PO 5XD PRN (Reason: dyspepsia) Qty: 30 0RF Rx Instructions: administer between meals and at bedtime No Action alum-mag hydroxide-simeth [Maalox Advanced] 200-200-20 mg/5 mL suspension 5 ml PO 5XD PRN (Reason: indigestion) Qty: 355 0RF Rx Instructions: administer between meals and at bedtime mupirocin 2 % ointment 1 appl topical BID 7 Days Qty: 15 0RF clotrimazole 1 % cream 1 appl topical BID 28 Days Qty: 45 0RF clotrimazole 1 % cream 1 appl topical BID PRN (Reason: rash) Qty: 30 0RF hydrocortisone 1 % cream 1 appl topical TID PRN (Reason: rash) Qty: 28.4 0RF mupirocin 2 % ointment 1 appl topical BID Qty: 15 0RF Referrals: ED Physician,Generic [Emergency Provider] - 2 days Uri Dickerson MD [Physician] - 2 days
== END 2022-05-17 11:21 | disposition home or self-care (01) ==
PROVIDERS: Emergency Provider Emergency Medicine Emergency Medical Services
DX: Z76.0 Encounter for issue of repeat prescription (principal)
CPT/HCPCS: 99282; 99283

== ENCOUNTER 2022-06-03 09:01 | Emergency (ER) | payer MEDICAID, SELFPAY ==
[2022-06-03 09:05] VITALS: BP 98/64; PULSE 72; RESP 16; TEMP 36.4; O2SAT 100; BMI 22.3
--- NOTE | 2022-06-03 09:33 | ED_ITS ---
HPI - Skin/Abscess/Foreign Bdy General Chief complaint: Skin/Abscess/Foreign Body Stated complaint: rash Time Seen by Provider: 06/03/22 09:32 Source: patient and staff interpreter Mode of arrival: ambulatory Limitations: no limitations History of Present Illness HPI narrative: 41 yo male seen here frequently for testicular issues such as itching and feels he has a rash - has not followed up with specialist despite our instructions. Has been on mupirocin and clotrimazole most recently mid april. he is here asking for clotrimazole again. no change from chronic itching. MD complaint: other (testicular itching) Onset (ago): month(s) Tetanus up to date: yes Location: genitals (both testicles) Severity: moderate Quality: pruritic Pain Consistency: constant Relieving factors: other (clotrimazole) Exacerbating factors: none Context: none Associated symptoms: denies other symptoms Treatments prior to arrival: OTC topical medication Related Data Previous Rx's Medication Instructions Recorded clotrimazole 1 % topical cream 1 appl topical BID PRN rash #30 03/28/22 grams hydrocortisone 1 % topical cream 1 appl topical TID PRN rash #28.4 03/28/22 grams aluminum-mag hydroxide-simethicone 5 ml PO 5XD PRN indigestion #355 mL 04/05/22 200 mg-200 mg-20 mg/5 mL oral susp (Maalox Advanced) mupirocin 2 % topical ointment 1 appl topical BID 7 days #15 grams 04/20/22 mupirocin 2 % topical ointment 1 appl topical BID #15 grams 04/29/22 clotrimazole 1 % topical cream 1 appl topical BID 4 weeks #45 05/09/22 grams aluminum-mag hydroxide-simethicone 5 ml PO 5XD PRN indigestion #355 mL 05/17/22 200 mg-200 mg-20 mg/5 mL oral susp (Maalox Advanced) pantoprazole 40 mg tablet,delayed 40 mg PO DAILY #30 tabs 05/17/22 release (Protonix) clotrimazole 1 % topical cream 1 appl topical BID 2 weeks #45 06/03/22 grams Allergies Allergy/AdvReac Type Severity Reaction Status Date / Time Penicillins [PENICILLINS] Allergy Unknown UNKNOWN Verified 04/05/22 11:31 Review of Systems Review of Systems: Constitutional : No Fever, No Chills, Cardiovascular : No Chest Pain, No SOB Respiratory : No Dyspnea Gastrointestinal : No abdominal pain Musculoskeletal : No Joint Swelling Skin : No rash, positive skin pruritis Neuro : No Weakness, No Numbness Psych : No SI/HI PMFSH Past Medical History Attestation statement: The following information was validated with the patient. Source: old records reviewed Medical History No pertinent past medical history Social History Social History Patient Tobacco Use Status: Never used Tobacco Advance Directives: No Advance Directives Information Provided: No Physical Exam Vital Signs: Vital Signs: Last Vital Signs Temp 97.6 F 06/03/22 09:05 Pulse 72 06/03/22 09:05 Resp 16 06/03/22 09:05 BP 98/64 06/03/22 09:05 Pulse Ox 100 06/03/22 09:05 O2 Del Method 06/03/22 09:05 BMI result Body Mass Index 22.3 Appearance: Alert. Oriented X3. No acute distress. Eyes: Pupils equal, round and reactive to light. ENT: Pharynx normal. Neck: Normal inspection. Neck supple. CVS: Pulses normal. Respiratory: No respiratory distress. Abdomen: normal exam no redness no rash no lesions Skin: Skin warm and dry. Normal skin color. Extremities: No lower extremity edema. Neuro: Oriented X 3. No motor deficit. No sensory deficit. MDM - Skin/Abscess/Foreign Bdy MDM Narrative Medical decision making narrative: 41 yo male with chronic pruritis of testicles with normal exam only goes away when he is on clotrimazole has had negative US and STI panels will refill cream and refer to urologist - used staff interpreter to stress importance of urologist Discharge Plan Discharge Clinical Impression: Chronic pruritus Patient Disposition: Home, Self-Care Instructions: Itchy Skin (ED) Additional Instructions: return to ED for any worsening symptoms or concerns Prescriptions: New clotrimazole 1 % cream 1 appl topical BID 14 Days Qty: 45 0RF No Action alum-mag hydroxide-simeth [Maalox Advanced] 200-200-20 mg/5 mL suspension 5 ml PO 5XD PRN (Reason: indigestion) Qty: 355 0RF Rx Instructions: administer between meals and at bedtime mupirocin 2 % ointment 1 appl topical BID 7 Days Qty: 15 0RF clotrimazole 1 % cream 1 appl topical BID 28 Days Qty: 45 0RF pantoprazole [Protonix] 40 mg tablet,delayed release (DR/EC) 40 mg PO DAILY Qty: 30 1RF alum-mag hydroxide-simeth [Maalox Advanced] 200-200-20 mg/5 mL suspension 5 ml PO 5XD PRN (Reason: indigestion) Qty: 355 0RF Rx Instructions: administer between meals and at bedtime clotrimazole 1 % cream 1 appl topical BID PRN (Reason: rash) Qty: 30 0RF hydrocortisone 1 % cream 1 appl topical TID PRN (Reason: rash) Qty: 28.4 0RF mupirocin 2 % ointment 1 appl topical BID Qty: 15 0RF Referrals: Walt Marie MD [Physician] - 2 weeks Print Language: [place] Citizen
--- NOTE | 2022-06-03 10:24 | PC.NURSE ---
PT EVALUATED BY PROVIDER. PLAN IS FOR DC HOME WITH F/U WITH UROLOGY. PT AWARE AND AGREEABLE TO PLAN. AWARE OF MEDICATION BEING SENT TO PHARMACY
== END 2022-06-03 10:26 | disposition home or self-care (01) ==
PROVIDERS: Emergency Provider Emergency Medicine
DX: L29.9 Pruritus, unspecified (principal)
CPT/HCPCS: 99282; 99283

== ENCOUNTER 2022-06-14 09:22 | Emergency (ER) | payer MEDICAID, SELFPAY ==
[2022-06-14 09:24] VITALS: BP 122/71; PULSE 79; RESP 20; TEMP 36.5; O2SAT 99; BMI 22.3
--- NOTE | 2022-06-14 10:30 | ED_ITS ---
HPI - Medical Clearance General Chief complaint: General Medical Stated complaint: Upper Gastric Pain Time Seen by Provider: 06/14/22 09:56 Source: patient Mode of arrival: ambulatory Limitations: language barrier ([place]ankan-speaking) History of Present Illness HPI Narrative: 41-year-old male with a past medical history of GERD presenting to the ER with request for medication refill for november legs and Protonix. Patient reports he is running low and is unable to get an appointment with his PCP. He denies any other symptoms related to this including fevers, chills, chest pain, shortness of breath, nausea/vomiting, abdominal pain, diarrhea, constipation, rashes or any other symptoms complaints or concerns at this time. MD complaint: other (Medication refill) Onset (ago): minute(s) (Prior to arrival) Associated Symptoms: denies other symptoms Treatments Prior to Arrival: none Related Information Previous Rx's Medication Instructions Recorded clotrimazole 1 % topical cream 1 appl topical BID PRN rash #30 03/28/22 grams hydrocortisone 1 % topical cream 1 appl topical TID PRN rash #28.4 03/28/22 grams aluminum-mag hydroxide-simethicone 5 ml PO 5XD PRN indigestion #355 mL 04/05/22 200 mg-200 mg-20 mg/5 mL oral susp (Maalox Advanced) mupirocin 2 % topical ointment 1 appl topical BID 7 days #15 grams 04/20/22 mupirocin 2 % topical ointment 1 appl topical BID #15 grams 04/29/22 clotrimazole 1 % topical cream 1 appl topical BID 4 weeks #45 05/09/22 grams aluminum-mag hydroxide-simethicone 5 ml PO 5XD PRN indigestion #355 mL 05/17/22 200 mg-200 mg-20 mg/5 mL oral susp (Maalox Advanced) pantoprazole 40 mg tablet,delayed 40 mg PO DAILY #30 tabs 05/17/22 release (Protonix) clotrimazole 1 % topical cream 1 appl topical BID 2 weeks #45 06/03/22 grams aluminum-mag hydroxide-simethicone 5 ml PO 5XD PRN indigestion #355 mL 06/14/22 200 mg-200 mg-20 mg/5 mL oral susp (Maalox Advanced) pantoprazole 40 mg tablet,delayed 40 mg PO DAILY gerd #30 tabs 06/14/22 release (Protonix) Allergies Allergy/AdvReac Type Severity Reaction Status Date / Time Penicillins [PENICILLINS] Allergy Unknown UNKNOWN Verified 04/05/22 11:31 Review of Systems Review of Systems: Constitutional : No Weight loss, No Fever, No Chills, No Night Sweats, No Fatigue, No Malaise ENT/Mouth : No Hearing loss, No Ear Pain, No Nasal Congestion, No Sinus Pain, No Hoarseness, No sore throat, No Rhinorrhea, No Swallowing Difficulty Eyes: No Eye Pain, No Swelling, No Redness, No Foreign Body, No Discharge, No Vision Changes Cardiovascular : No Chest Pain, No SOB, No Dyspnea on Exertion, No Orthopnea, No Edema, No Palpitations Respiratory : No Cough, No Sputum, No Wheezing, No Smoke Exposure, No Dyspnea Gastrointestinal : No Nausea, No Vomiting, No Diarrhea, No Constipation, No abdominal Pain, No Hematochezia, No Melena Genitourinary : no irregular bleeding, No Dysuria, No Urinary Frequency, No Hematuria, No Urinary Incontinence, No Urgency, No Flank Pain, No Urinary Flow Changes, No Hesitancy Musculoskeletal : No joint pain, No Myalgias, No Joint Swelling Skin : No Skin Lesions, No rash Neuro : No Weakness, No Numbness, No Paresthesias, No Loss of Consciousness, No Dizziness, No Headache Psych : No Anxiety/Panic, No Depression, No SI/HI/AH/VH, No Social Issues, Heme/Lymph: No Bruising, No Bleeding,No Lymphadenopathy Endocrine : No Polyuria, No Polydipsia, No Temperature Intolerance Yes all other systems are reviewed and are negative COUNTS INCLUDE 234 BEDS AT THE [facility] Past Medical History Attestation statement: The following information was validated with the patient. Source: old records reviewed and nursing notes reviewed Medical History No pertinent past medical history Social History Social History Patient Tobacco Use Status: Never used Tobacco Advance Directives: No Physical Exam Vital Signs: Vital Signs: Last Vital Signs Temp 97.7 F 06/14/22 09:24 Pulse 79 06/14/22 09:24 Resp 20 06/14/22 09:24 BP 122/71 06/14/22 09:24 Pulse Ox 99 06/14/22 09:24 O2 Del Method 06/14/22 09:24 BMI result Body Mass Index 22.3 vital signs have been reviewed as normal and appeared to be correct. Blood pressure normal Heart rate normal. Respiration rate normal. Temperature normal. Oxygen saturation normal. Appearance: Alert. Oriented X3. No acute distress. Head: Normal external exam. Normocephalic. Atraumatic. Eyes: PERRLA. EOMI. Conjunctiva and sclera normal. Eyelids normal. ENT: Pharynx normal. Uvula midline. Moist mucous membranes. Neck: Normal inspection. Neck supple. FROM. CVS: Normal heart rate and rhythm. Respiratory: No respiratory distress. Painless inspiration. Skin: Skin warm and dry. Normal skin color. Normal skin turgor. No rashes/lesions/lacerations noted. Extremities: No lower extremity edema. Extremities exhibit normal range of motion. Extremities nontender. Neuro: Oriented X 3. No motor deficit. No sensory deficit. Reflexes normal. Normal steady gait. No focal neuro deficits noted. Course Course Course Narrative: Patient here for medication refill. Will DC home with medication refill. Instructions to follow-up with PCP and to return if any new or worsening symptoms. Patient understands agrees with this plan. MDM - Medical Clearance Medical Records Attestation: I reviewed the patient's medical records. Discharge Plan Discharge Clinical Impression: Medication refill Patient Disposition: Home, Self-Care Instructions: Medicine Refill (ED) Prescriptions: New alum-mag hydroxide-simeth [Maalox Advanced] 200-200-20 mg/5 mL suspension 5 ml PO 5XD PRN (Reason: indigestion) Qty: 355 1RF Rx Instructions: administer between meals and at bedtime pantoprazole [Protonix] 40 mg tablet,delayed release (DR/EC) 40 mg PO DAILY Qty: 30 1RF No Action alum-mag hydroxide-simeth [Maalox Advanced] 200-200-20 mg/5 mL suspension 5 ml PO 5XD PRN (Reason: indigestion) Qty: 355 0RF Rx Instructions: administer between meals and at bedtime mupirocin 2 % ointment 1 appl topical BID 7 Days Qty: 15 0RF clotrimazole 1 % cream 1 appl topical BID 28 Days Qty: 45 0RF pantoprazole [Protonix] 40 mg tablet,delayed release (DR/EC) 40 mg PO DAILY Qty: 30 1RF alum-mag hydroxide-simeth [Maalox Advanced] 200-200-20 mg/5 mL suspension 5 ml PO 5XD PRN (Reason: indigestion) Qty: 355 0RF Rx Instructions: administer between meals and at bedtime clotrimazole 1 % cream 1 appl topical BID 14 Days Qty: 45 0RF clotrimazole 1 % cream 1 appl topical BID PRN (Reason: rash) Qty: 30 0RF hydrocortisone 1 % cream 1 appl topical TID PRN (Reason: rash) Qty: 28.4 0RF mupirocin 2 % ointment 1 appl topical BID Qty: 15 0RF Referrals: Physician,Unknown J [Primary Care Provider] - 2 days (your pcp) Print Language: [place]
== END 2022-06-14 11:01 | disposition home or self-care (01) ==
PROVIDERS: Emergency Provider Emergency Medicine Emergency Medical Services
DX: K29.70 Gastritis, unspecified, without bleeding (principal); Z76.0 Encounter for issue of repeat prescription; Z79.899 Other long term (current) drug therapy
CPT/HCPCS: 99283

== ENCOUNTER → 2022-07-06 15:28 | Outpatient (BNVA) | payer MEDICAID, SELFPAY | PROVIDERS: Visit Provider Urology | DX: R21 Rash and other nonspecific skin eruption (principal) | CPT/HCPCS: 99202 ==

== ENCOUNTER 2022-07-18 09:18 | Emergency (ER) | payer MEDICAID, SELFPAY ==
[2022-07-18 09:43] VITALS: BP 105/66; PULSE 80; RESP 16; TEMP 36.7; O2SAT 98; BMI 22.3
--- NOTE | 2022-07-18 11:41 | ED_ITS ---
HPI - General Adult General Chief complaint: General Medical Stated complaint: medication Time Seen by Provider: 07/18/22 10:43 Source: patient Mode of arrival: ambulatory History of Present Illness HPI narrative: 41-year-old male with past medical history of GERD presenting to ED for medication refill of Maalox. Patient states ran out yesterday. Denies any symptoms at present including fever, chills, abdominal pain, nausea / vomiting, diarrhea Onset (ago): hour(s) Related Data Previous Rx's Medication Instructions Recorded hydrocortisone 1 % topical cream 1 appl topical TID PRN rash #28.4 03/28/22 grams aluminum-mag hydroxide-simethicone 5 ml PO 5XD PRN indigestion #355 mL 04/05/22 200 mg-200 mg-20 mg/5 mL oral susp (Maalox Advanced) aluminum-mag hydroxide-simethicone 5 ml PO 5XD PRN indigestion #355 mL 05/17/22 200 mg-200 mg-20 mg/5 mL oral susp (Maalox Advanced) pantoprazole 40 mg tablet,delayed 40 mg PO DAILY #30 tabs 05/17/22 release (Protonix) aluminum-mag hydroxide-simethicone 5 ml PO 5XD PRN indigestion #355 mL 06/14/22 200 mg-200 mg-20 mg/5 mL oral susp (Maalox Advanced) pantoprazole 40 mg tablet,delayed 40 mg PO DAILY gerd #30 tabs 06/14/22 release (Protonix) clotrimazole-betamethasone 1 1 appl topical BID #45 grams 07/06/22 %-0.05 % topical cream aluminum-mag hydroxide-simethicone 5 ml PO 5XD PRN dyspepsia #355 mL 07/18/22 200 mg-200 mg-20 mg/5 mL oral susp (Maalox Advanced) Allergies Allergy/AdvReac Type Severity Reaction Status Date / Time Penicillins [PENICILLINS] Allergy Unknown UNKNOWN Verified 07/06/22 15:47 Review of Systems Review of Systems: Constitutional: No Fever, No Chills ENT/Mouth: No Ear Pain, No Nasal Congestion, No sore throat, No Rhinorrhea, No Swallowing Difficulty Cardiovascular: No Chest Pain, No SOB Respiratory: No Cough, No Sputum, No Wheezing Gastrointestinal: No Nausea, No Vomiting, No Diarrhea, No Constipation, No Abdominal pain Genitourinary: No Dysuria, No Urinary Frequency, No Hematuria, No Flank Pain Musculoskeletal: No joint pain, No Myalgias, No Joint Swelling Skin: No Skin Lesions, No rash Neuro: No Weakness, No Numbness, No Paresthesias Yes all other systems are reviewed and are negative Constitutional: Constitutional: Reports as per [facility] Past Medical History Attestation statement: The following information was validated with the patient. Medical History No pertinent past medical history Social History Social History Patient Tobacco Use Status: Never used Tobacco Advance Directives: No Advance Directives Information Provided: Yes Physical Exam ED Vital Signs: Vital Signs - 24 hr 07/18/22 09:43 Temperature 98.1 F Pulse Rate 80 Respiratory Rate 16 Blood Pressure 105/66 Pulse Oximetry 98 Oxygen Delivery Method Room Air BMI result Body Mass Index 22.3 Const General: cooperative, healthy appearing and no acute distress Orientation/consciousness: patient oriented x3 Limitations: no limitations HENMT Head: Yes normal to inspection and Yes atraumatic Ears: hearing grossly normal bilaterally General nose exam: Normal external nose present Face and sinus: Yes normal facial exam Eyes General: appearance normal, both eyes and all related structures EOM: EOMs intact bilaterally Neck Neck: Yes normal visual inspection and Yes no meningeal signs Resp Effort & Inspection: normal respiratory effort and no respiratory distress Cardio Rate: regular rate Heart sounds: S1 normal heart sound present and S2 normal heart sound present Skin Rashes: no rashes Wounds: no wounds Neuro General: patient oriented x3, tone normal and no meningeal signs Gait exam (Neuro): Normal gait present Extrem General: Yes normal to inspection Medical Decision Making Medical Decision Making MDM Narrative: 41-year-old male with past medical history of GERD presenting to ED for medication refill of Maalox. On exam VSS, NAD, well appearing, asymptomatic at present. Will refill pts Rx Results discussed with patient including worrisome signs and symptoms and strict return precautions, and when to return to the emergency department. They verbalized understanding and feel safe for discharge at this time. Differential Diagnosis Differential Diagnoses: The differential diagnosis associated with the presentation includes Admission/Observation Consideration of admission/observation: Escalation of care including admission/observation considered Discharge Plan Discharge Clinical Impression: Medication refill Patient Disposition: Home, Self-Care Instructions: Medicine Refill (ED) Additional Instructions: a refill of your prescription was sent to the pharmacy. Please of close follow-up with your doctors Prescriptions: New alum-mag hydroxide-simeth [Maalox Advanced] 200-200-20 mg/5 mL suspension 5 ml PO 5XD PRN (Reason: dyspepsia) Qty: 355 0RF Rx Instructions: administer between meals and at bedtime No Action alum-mag hydroxide-simeth [Maalox Advanced] 200-200-20 mg/5 mL suspension 5 ml PO 5XD PRN (Reason: indigestion) Qty: 355 0RF Rx Instructions: administer between meals and at bedtime pantoprazole [Protonix] 40 mg tablet,delayed release (DR/EC) 40 mg PO DAILY Qty: 30 1RF alum-mag hydroxide-simeth [Maalox Advanced] 200-200-20 mg/5 mL suspension 5 ml PO 5XD PRN (Reason: indigestion) Qty: 355 0RF Rx Instructions: administer between meals and at bedtime alum-mag hydroxide-simeth [Maalox Advanced] 200-200-20 mg/5 mL suspension 5 ml PO 5XD PRN (Reason: indigestion) Qty: 355 1RF Rx Instructions: administer between meals and at bedtime pantoprazole [Protonix] 40 mg tablet,delayed release (DR/EC) 40 mg PO DAILY Qty: 30 1RF hydrocortisone 1 % cream 1 appl topical TID PRN (Reason: rash) Qty: 28.4 0RF clotrimazole-betamethasone 1-0.05 % cream 1 appl topical BID Qty: 45 2RF Rx Instructions: apply to affected area twice daily as needed Referrals: [facility] [Primary Care Provider] -
== END 2022-07-18 12:25 | disposition home or self-care (01) ==
PROVIDERS: Emergency Provider Emergency Medicine
DX: K21.9 Gastro-esophageal reflux disease without esophagitis (principal); Z76.0 Encounter for issue of repeat prescription
CPT/HCPCS: 99282; 99283

== ENCOUNTER 2022-08-08 11:11 | Emergency (ER) | payer MEDICAID, SELFPAY ==
[2022-08-08 11:21] VITALS: BP 116/58; PULSE 64; RESP 18; TEMP 36.2; O2SAT 98; BMI 25.4
--- NOTE | 2022-08-08 11:21 | ED.SKABFB ---
HPI - Skin/Abscess/Foreign Bdy General Chief complaint: General Medical Stated complaint: Rash Time Seen by Provider: 08/08/22 11:26 Source: patient Mode of arrival: ambulatory History of Present Illness HPI narrative: 41-year-old male with a past medical history of GERD presenting to the ED complaining of pruritic rash to bilateral abdomen x1 week. Admits has been using alcohol wipes and Purrell on his skin at this location for cleaning. Admits been using clotrimazole cream on scrotal rash. Denies other new exposures/new medications, recent travel, tick/insect bites, fever, SOB MD complaint: rash Onset (ago): week(s) Related Data Previous Rx's Medication Instructions Recorded hydrocortisone 1 % topical cream 1 appl topical TID PRN rash #28.4 03/28/22 grams aluminum-mag hydroxide-simethicone 5 ml PO 5XD PRN indigestion #355 mL 04/05/22 200 mg-200 mg-20 mg/5 mL oral susp (Maalox Advanced) aluminum-mag hydroxide-simethicone 5 ml PO 5XD PRN indigestion #355 mL 05/17/22 200 mg-200 mg-20 mg/5 mL oral susp (Maalox Advanced) pantoprazole 40 mg tablet,delayed 40 mg PO DAILY #30 tabs 05/17/22 release (Protonix) aluminum-mag hydroxide-simethicone 5 ml PO 5XD PRN indigestion #355 mL 06/14/22 200 mg-200 mg-20 mg/5 mL oral susp (Maalox Advanced) pantoprazole 40 mg tablet,delayed 40 mg PO DAILY gerd #30 tabs 06/14/22 release (Protonix) clotrimazole-betamethasone 1 1 appl topical BID #45 grams 07/06/22 %-0.05 % topical cream aluminum-mag hydroxide-simethicone 5 ml PO 5XD PRN dyspepsia #355 mL 07/18/22 200 mg-200 mg-20 mg/5 mL oral susp (Maalox Advanced) hydrocortisone 1 % topical cream 1 appl topical BID PRN rash #454 08/08/22 (Anti-Itch (hydrocortisone)) grams prednisone 20 mg tablet 40 mg PO DAILY 5 days #10 tabs 08/08/22 Allergies Allergy/AdvReac Type Severity Reaction Status Date / Time Penicillins [PENICILLINS] Allergy Unknown UNKNOWN Verified 07/06/22 15:47 Review of Systems Review of Systems: Constitutional: No Fever, No Chills ENT/Mouth: No Ear Pain, No Nasal Congestion, No sore throat, No Rhinorrhea, No Swallowing Difficulty Cardiovascular: No Chest Pain, No SOB Respiratory: No Cough, No Sputum, No Wheezing Gastrointestinal: No Nausea, No Vomiting, No Diarrhea, No Constipation, No Abdominal pain Genitourinary: No Dysuria, No Urinary Frequency, No Hematuria, No Flank Pain Musculoskeletal: No joint pain, No Myalgias, No Joint Swelling Skin: + Skin Lesions, No rash Neuro: No Weakness, No Numbness, No Paresthesias Yes all other systems are reviewed and are negative Constitutional: Constitutional: Reports as per [facility] Past Medical History Attestation statement: The following information was validated with the patient. Medical History No pertinent past medical history Social History Social History Patient Tobacco Use Status: Never used Tobacco Advance Directives: No Advance Directives Information Provided: No Physical Exam Vital Signs: Vital Signs: Last Vital Signs Temp 97.1 F 08/08/22 11:21 Pulse 64 08/08/22 11:21 Resp 18 08/08/22 11:21 BP 116/58 L 08/08/22 11:21 Pulse Ox 98 08/08/22 11:21 O2 Del Method 08/08/22 11:21 BMI result Body Mass Index 25.4 Const: General: cooperative, healthy appearing and no acute distress Orientation/consciousness: patient oriented x3 Limitations: no limitations HEENT: Head: Yes normal to inspection and Yes atraumatic Ears: hearing grossly normal bilaterally General nose exam: Normal external nose present Face and sinus: Yes normal facial exam Mouth: Normal oral and palatal mucosa present Throat: Yes posterior oropharynx normal, Yes tonsils normal, Yes uvula midline, No peritonsillar mass and No uvular edema Eyes: General: appearance normal, both eyes and all related structures EOM: EOMs intact bilaterally Neck: Neck: Yes normal visual inspection and Yes no meningeal signs Resp: Effort & Inspection: normal respiratory effort and no respiratory distress Cardio: Rate: regular rate GI: Inspection: Yes normal to inspection Palpation (GI): Soft to palpation, nontender, no guarding and not rigid Skin: Other: Macular papular rash noted to bilateral sides/flank, blanching, no warmth, no pustules/functions or induration. No mucous membrane or palm/sole involvement Rashes: rashes noted Wounds: no wounds Neuro: General: patient oriented x3, tone normal and no meningeal signs Gait exam (Neuro): Normal gait present Extrem: General: Yes normal to inspection Medical Decision Making Medical Decision Making MDM Narrative: 41-year-old male with a past medical history of GERD presenting to the ED complaining of pruritic rash to bilateral abdomen x1 week. On exam vital signs stable, NAD, nontoxic appearing, physical exam as noted above. Concern for contact dermatitis. Low suspicion for STI/TENs or allergic reaction. Low suspicion for tic/insect etiology. No evidence of cellulitis/infection Plan: P.o. prednisone/hydrocortisone Results discussed with patient including worrisome signs and symptoms and strict return precautions, and when to return to the emergency department. They verbalized understanding and feel safe for discharge at this time. Differential Diagnosis Differential Diagnoses: The differential diagnosis associated with the presentation includes As above Prescription Management I considered prescription management with: Antibiotic Discharge Plan Discharge Clinical Impression: Contact dermatitis Patient Disposition: Home, Self-Care Instructions: Contact Dermatitis (ED) Additional Instructions: Prednisone as an oral steroid please take as prescribed. Hydrocortisone is a topical steroid, apply to rash only, avoid application to face, hands, feet or genital region as potentially can discolored your skin Avoid any new medications. You may also apply topical lotion Follow-up with her doctor. If symptoms persist or worsen return to the emergency department Prescriptions: New hydrocortisone [Anti-Itch (HC)] 1 % cream 1 appl topical BID PRN (Reason: rash) Qty: 454 0RF prednisone 20 mg tablet 40 mg PO DAILY 5 Days Qty: 10 0RF No Action alum-mag hydroxide-simeth [Maalox Advanced] 200-200-20 mg/5 mL suspension 5 ml PO 5XD PRN (Reason: indigestion) Qty: 355 0RF Rx Instructions: administer between meals and at bedtime pantoprazole [Protonix] 40 mg tablet,delayed release (DR/EC) 40 mg PO DAILY Qty: 30 1RF alum-mag hydroxide-simeth [Maalox Advanced] 200-200-20 mg/5 mL suspension 5 ml PO 5XD PRN (Reason: indigestion) Qty: 355 0RF Rx Instructions: administer between meals and at bedtime alum-mag hydroxide-simeth [Maalox Advanced] 200-200-20 mg/5 mL suspension 5 ml PO 5XD PRN (Reason: indigestion) Qty: 355 1RF Rx Instructions: administer between meals and at bedtime pantoprazole [Protonix] 40 mg tablet,delayed release (DR/EC) 40 mg PO DAILY Qty: 30 1RF hydrocortisone 1 % cream 1 appl topical TID PRN (Reason: rash) Qty: 28.4 0RF alum-mag hydroxide-simeth [Maalox Advanced] 200-200-20 mg/5 mL suspension 5 ml PO 5XD PRN (Reason: dyspepsia) Qty: 355 0RF Rx Instructions: administer between meals and at bedtime clotrimazole-betamethasone 1-0.05 % cream 1 appl topical BID Qty: 45 2RF Rx Instructions: apply to affected area twice daily as needed Referrals: [facility] [Primary Care Provider] - 3 days
== END 2022-08-08 11:35 | disposition home or self-care (01) ==
LOC: HO.ED 11:33
PROVIDERS: Emergency Provider Student in an Organized Health Care Education/Training Program
DX: L25.9 Unspecified contact dermatitis, unspecified cause (principal); R21 Rash and other nonspecific skin eruption
CPT/HCPCS: 99282; 99283

== ENCOUNTER → 2022-10-21 11:18 | Outpatient (BNVA) | payer MEDICAID, SELFPAY | PROVIDERS: Visit Provider Urology | DX: R21 Rash and other nonspecific skin eruption (principal) | CPT/HCPCS: 99212 ==

== ENCOUNTER 2024-10-25 09:30 | Emergency (ER) | payer MEDICAID, SELFPAY ==
[2024-10-25 09:39] VITALS: BP 112/59; PULSE 79; RESP 18; TEMP 36.7; O2SAT 98; BMI 20.4
--- NOTE | 2024-10-25 10:04 | PC.NURSE ---
Pt comes to ED today with c/o bilat ear pain and decreased hearing Pt reports mild intermittent dizziness and sensations of something in his ears. A&Ox3 Awaiting ED provider/new orders.
--- NOTE | 2024-10-25 10:26 | ED.GENADULT ---
HPI - General Adult General Chief complaint: Ear Problems Stated complaint: ear pain in both unable to hear Time Seen by Provider: 10/25/24 10:00 Source: patient Mode of arrival: ambulatory Limitations: no limitations History of Present Illness ED Provider: KOKO Conklin HPI narrative: This is a 43-year-old male who presents to the emergency department with bilateral ear pain left greater than right he reports it is both pain and fullness which has been progressively worsening over the past 2-3 weeks. He reports he had to get his ears cleaned out years ago this feels similar. He denies fevers, chills, recent illness, headache, vision changes, dizziness, sore throat, nausea, vomiting, abdominal pain, chest pain, shortness of breath. Patient does not use Q-tips. Related Data Home Medications ?Medication ?Instructions ?Recorded ?Confirmed pantoprazole 40 mg tablet,delayed 40 mg PO DAILY PRN 11/22/22 release Previous Rx's ?Medication ?Instructions ?Recorded pantoprazole 40 mg tablet,delayed 40 mg PO DAILY #30 tabs 05/17/22 release (Protonix) aluminum-mag hydroxide-simethicone 5 ml PO 5XD PRN dyspepsia #355 mL 07/18/22 200 mg-200 mg-20 mg/5 mL oral susp (Maalox Advanced) hydrocortisone 1 % topical cream 1 appl topical BID PRN rash #454 08/08/22 (Anti-Itch (hydrocortisone)) grams clotrimazole-betamethasone 1 1 appl topical BID #45 grams 10/21/22 %-0.05 % topical cream carbamide peroxide 6.5 % ear drops 5 drp otic (ears) Q12H 4 days #15 10/25/24 (Debrox) mL ciprofloxacin 0.3 %-dexamethasone 4 drp otic (ears) BID 7 days #7.5 10/25/24 0.1 % ear drops,suspension mL Allergies Allergy/AdvReac Type Severity Reaction Status Date / Time Penicillins [PENICILLINS] Allergy Unknown UNKNOWN Verified 10/25/24 09:42 Review of Systems Review of Systems: Yes all other systems are reviewed and are negative PMFSH Past Medical History Attestation statement: The following information was validated with the patient. Source: old records reviewed and nursing notes reviewed Medical History No pertinent past medical history Social History Social History (System 07/18/23 @ 11:44 by Dorina Rai) Patient Tobacco Use Status: Never used Tobacco Smoked in Last 30 Days: No Use of substances other than those prescribed or required for medical reasons: No Advance Directives: No Advance Directives Information Provided: Yes Physical Exam ED Vital Signs: Vital Signs - 24 hr 10/25/24 09:39 Temperature 98.0 F Pulse Rate 79 Respiratory Rate 18 Blood Pressure 112/59 L Pulse Oximetry 98 Oxygen Delivery Method Room Air BMI result Body Mass Index 20.4 vss Appearance: Alert.? Oriented X3.? No acute distress.? Head: Normocephalic, atraumatic, no step-offs or deformities Eyes: Pupils equal, round and reactive to light.? ENT: + b/l cerumen impaction b/l w/ ttp to external ear. No mastoid tenderness. Normal TM nd EC b/l after irrigation Neck: Normal inspection.? Neck supple.? CVS: Normal heart rate and rhythm.? Pulses normal.? Respiratory: No respiratory distress.? Breath sounds normal.? Abdomen: Soft and nontender.? Skin: Skin warm and dry.? Normal skin color.? Normal skin turgor.? Extremities: No lower extremity edema.? No calf ttp. 5/5 strength to bilateral upper and lower extremities Neuro: Oriented X 3.? No motor deficit.? No sensory deficit. CN 2-12 intact Course Reevaluation(s) Reevaluation #1: Attempted to irrigate bilateral ears with water and hydrogen peroxide after Colace was placed bilaterally, no success. It appears as though the cerumen is extremely hard. I also tried using a curette patient was quite uncomfortable. I will discharge him home with Debrox b.i.d. x4 days advised him to come back after. Also sending him with Ciprodex. He should follow up with his PCP may need ENT, question of cerumen adhering to tympanic membrane. Educated patient on diagnosis and treatment plan, answered all question, patient verbalizes understanding. At this time patient will be discharged home, advised to return with new or worsening symptoms. Educated on worrisome signs and symptoms and when to return. At this time I feel comfortable discharge home. Time: 11:39 Medications Administered Discontinued Medications Generic Name Dose Route Start Last Admin Trade Name Freq PRN Reason Stop Dose Admin Docusate Sodium 100 mg 10/25/24 10:27 10/25/24 10:34 Docusate Sodium 100 Mg/10 Ml Liquid PO 10/25/24 10:28 100 mg ONCE ONE Administration Medical Decision Making Medical Decision Making [facility] Narrative: 43-year-old male presents with bilateral cerumen impaction ongoing for the past 2 weeks worsening. However the last time he had his ears cleaned was a year ago. b/l cerumen impaction History and physical exam consistent with bilateral cerumen impaction patient does have mild discomfort with manipulation of external ear. No mastoid tenderness. Therefore some suspicion for otitis externa. Unlikely otitis media. I do not suspect mastoiditis, meningitis, encephalitis. Plan will apply Colace to ears for 15-30 minutes and then irrigate. Differential Diagnosis Differential Diagnoses: The differential diagnosis associated with the presentation includes (History and physical exam consistent with bilateral cerumen impaction patient does have mild discomfort with manipulation of external ear. No mastoid tenderness. Therefore some suspicion for otitis externa. Unlikely otitis media. I do not suspect mastoiditis, meningitis, encephalitis.) Admission/Observation Consideration of admission/observation: Escalation of care including admission/observation considered External Record Review External record reviewed: Outpatient record Chronic Conditions Patient?s care impacted by: Other Critical Care Time Critical Care Time Critical Care Time: No Discharge Plan Discharge Clinical Impression: Cerumen impaction, Otitis externa Patient Disposition: Still a Patient Instructions: Otitis Externa (DC) Additional Instructions: Take your medications as prescribed. If you were prescribed antibiotics today, it is important that you take your medication to their entirety, do not skip any doses, do not finish them early. Follow-up with your primary care provider this week. Return to the emergency department with new or worsening symptoms. Such as fevers, chills, chest pain, shortness of breath, nausea, vomiting, dizziness, headache, vision changes, lethargy In case of emergency call 911 Please apply Debrox to your ears every day for 4 days twice a day. Follow-up with your PCP if you do not have on a list below. Prescriptions: New ciprofloxacin-dexamethasone 0.3-0.1 % drops,suspension 4 drp otic (ears) BID 7 Days Qty: 7.5 0RF Debrox 6.5 % drops 5 drp otic (ears) Q12H 4 Days Qty: 15 0RF No Action pantoprazole [Protonix] 40 mg tablet,delayed release (DR/EC) 40 mg PO DAILY Qty: 30 1RF hydrocortisone [Anti-Itch (HC)] 1 % cream 1 appl topical BID PRN (Reason: rash) Qty: 454 0RF alum-mag hydroxide-simeth [Maalox Advanced] 200-200-20 mg/5 mL suspension 5 ml PO 5XD PRN (Reason: dyspepsia) Qty: 355 0RF Rx Instructions: administer between meals and at bedtime clotrimazole-betamethasone 1-0.05 % cream 1 appl topical BID Qty: 45 5RF Rx Instructions: apply to affected area twice daily as needed pantoprazole 40 mg tablet,delayed release (DR/EC) 40 mg PO DAILY PRN Referrals: Omar Sauceda MD [Primary Care Provider] - 2 days Armond Zeng [Physician] - 2 days Stand Alone Forms: Work/School Release Print Language: Setswana
[2024-10-25] MEDS: Docusate Sodium 100 MG/10 ML LIQUID PO (10:34)
[2024-10-25 11:57] VITALS: BP 112/59; PULSE 79; RESP 18; TEMP 36.7; O2SAT 98
== END 2024-10-25 11:57 | disposition still patient (30) ==
PROVIDERS: Emergency Provider Emergency Medicine; PCP Emergency Medicine
DX: H60.93 Unspecified otitis externa, bilateral (principal); H61.23 Impacted cerumen, bilateral; H92.03 Otalgia, bilateral
CPT/HCPCS: 69210; 99283; 99284

== ENCOUNTER 2024-12-10 09:54 | Emergency (ER) | payer MEDICAID, SELFPAY ==
[2024-12-10 10:25] VITALS: BP 92/66; PULSE 63; RESP 18; TEMP 36.4; O2SAT 98; BMI 18.6
--- NOTE | 2024-12-10 11:32 | ED_ITS ---
HPI - Ear Problem General Chief complaint: Ear Problems Stated complaint: Ear infection, seen recently Time Seen by Provider: 12/10/24 11:06 Source: patient Mode of arrival: ambulatory Limitations: no limitations History of Present Illness ED Provider: Dr. Adams HPI Narrative: 43 year old otherwise healthy who presents to the ER with decreased hearing and pain in his ear. Denies any falls fever or pain at this time. Has used debrox has had to come to the ER to have them cleaned in the past. Related Data Home Medications ?Medication ?Instructions ?Recorded ?Confirmed pantoprazole 40 mg tablet,delayed 40 mg PO DAILY PRN 11/22/22 release Previous Rx's ?Medication ?Instructions ?Recorded pantoprazole 40 mg tablet,delayed 40 mg PO DAILY #30 tabs 05/17/22 release (Protonix) aluminum-mag hydroxide-simethicone 5 ml PO 5XD PRN dyspepsia #355 mL 07/18/22 200 mg-200 mg-20 mg/5 mL oral susp (Maalox Advanced) hydrocortisone 1 % topical cream 1 appl topical BID PRN rash #454 08/08/22 (Anti-Itch (hydrocortisone)) grams clotrimazole-betamethasone 1 1 appl topical BID #45 grams 10/21/22 %-0.05 % topical cream carbamide peroxide 6.5 % ear drops 5 drp otic (ears) Q12H 4 days #15 10/25/24 (Debrox) mL ciprofloxacin 0.3 %-dexamethasone 4 drp otic (ears) BID 7 days #7.5 10/25/24 0.1 % ear drops,suspension mL Allergies Allergy/AdvReac Type Severity Reaction Status Date / Time Penicillins [PENICILLINS] Allergy Unknown UNKNOWN Verified 12/10/24 10:28 Review of Systems Review of Systems: Review of systems: General: Patient denies any fever chills recent illness or falls Musculoskeletal: Denies back pain or body aches or other injuries HEENT: denies headache, runny nose, he is having trouble hearing but no pain Respiratory: denies shortness of breath, cough Cardiovascular: no chest pain or palpitations : denies dysuria, frequency Abdomen: no nausea vomiting denies abdominal pain Extremities: no swelling, no pain Skin: no diaphoresis Yes all other systems are reviewed and are negative PMFSH Past Medical History Medical History No pertinent past medical history Social History Social History (System 07/18/23 @ 11:44 by Dorina Rai) Patient Tobacco Use Status: Never used Tobacco Advance Directives: No Advance Directives Information Provided: No Physical Exam Vital Signs: Vital Signs: Last Vital Signs Temp 97.5 F 12/10/24 10:25 Pulse 63 12/10/24 10:25 Resp 18 12/10/24 10:25 BP 92/66 12/10/24 10:25 Pulse Ox 98 12/10/24 10:25 O2 Del Method Room Air 12/10/24 10:25 BMI result Body Mass Index 18.6 General: Well-appearing well-nourished in no signs of distress HEENT: Normocephalic atraumatic bilateral cerumen impaction Neck: No signs of JVD, no masses no tenderness or lymphadenopathy Cardiovascular: Regular rate and rhythm Respiratory: Clear to auscultation bilaterally Abdomen: Soft nontender no masses Extremities: Normal pedal pulses no signs of edema Skin: Dry warm no rashes Back: No tenderness full ROM Procedures Procedure Narrative Procedure Narrative: Cynthia has been using debrox for 2 weeks. I irrigated about 25 cc in both ears with good effect and complete cerumen disempaction patient tolerated the procedure well. Discharge Plan Discharge Clinical Impression: Cerumen impaction Patient Disposition: Home, Self-Care Additional Instructions: You were seen in the ER for your ears I was able to remove all the wax. If you have any other concerns please return to the ER. Prescriptions: No Action pantoprazole [Protonix] 40 mg tablet,delayed release (DR/EC) 40 mg PO DAILY Qty: 30 1RF hydrocortisone [Anti-Itch (HC)] 1 % cream 1 appl topical BID PRN (Reason: rash) Qty: 454 0RF alum-mag hydroxide-simeth [Maalox Advanced] 200-200-20 mg/5 mL suspension 5 ml PO 5XD PRN (Reason: dyspepsia) Qty: 355 0RF Rx Instructions: administer between meals and at bedtime ciprofloxacin-dexamethasone 0.3-0.1 % drops,suspension 4 drp otic (ears) BID 7 Days Qty: 7.5 0RF Debrox 6.5 % drops 5 drp otic (ears) Q12H 4 Days Qty: 15 0RF clotrimazole-betamethasone 1-0.05 % cream 1 appl topical BID Qty: 45 5RF Rx Instructions: apply to affected area twice daily as needed pantoprazole 40 mg tablet,delayed release (DR/EC) 40 mg PO DAILY PRN Print Language: Panamanian
[2024-12-10 11:33] VITALS: BP 109/79; PULSE 62; RESP 16; TEMP 37.1; O2SAT 99
[2024-12-10 11:51] VITALS: BP 109/79; PULSE 62; RESP 16; TEMP 37.1; O2SAT 99
--- OUTSIDE RECORDS SUMMARY | 2024-12-10 12:26 | XMS_ITS ---
Author Organization [employer] Address [address] [place] [address] Care Team Providers Care Radiotelegrapher Name Role Phone Carol Ch Primary Care Provider [phone] [facility] Status:Outreach In Progress (Enrolling) Start date:10/28/2024 Enrollment reason:ADT Feed Overview ED- Pt went to [facility] ED on 10/25/24. Please outreach for enrollment. Case Team Name Relationship Phone Patti Griffiths (Responsible Staff) [phone] Continued Care and Services Coordination
--- OUTSIDE RECORDS SUMMARY | 2024-12-10 12:26 | XMS_ITS | Encounter Summary ---
Author Organization [employer] Address [address] [place] [address] Care Team Providers Care Adult Family Home Program Manager Name Role Phone Carol Ch Primary Care Provider [phone] Reason for Visit * Reason Onset Date Comments Medication Question 08/18/2022 Encounter Details Date Type Department Care Team (Late st Contact Info) Description 08/18/2022 Telephone [facility] [address] [place] [address] Carol Ch ANP [address] [place] [address] Medication Question Social History Tobacco Use Types Packs/Day Years Used Date Smoking Tobacco: Never Assessed Sex and Gender Information Value Date Recorded Sex Assigned at Male 05/30/2022 10:16 AM EDT Legal Sex Male 10:16 AM EDT Gender Identity Choose not to disclose 10:16 AM EDT Sexual Orientation Choose not to disclose 2021 10:16 AM EDT documented as of this encounter Miscellaneous Notes * Telephone Encounter - Melina Armstrong - 08/18/2022 10:20 AM EST Tc from mother requesting for pt to continue receiving a medication that was prescribed at the er .Medication is dica antacid liquid, mother would like to know if pcp can prescribe .Please call to clarify . documented in this encounter Plan of Treatment Not on file documented as of this encounter Visit Diagnoses Not on filedocumented in this encounter Care Teams Adult Family Home Program Manager Relationship Specialty Start Date End Date Carol Ch ANP [address] [place] [address] PCP - General Family Medicine 07/10/19 documented as of this encounter
--- OUTSIDE RECORDS SUMMARY | 2024-12-10 12:26 | XMS_ITS | Clinical Summary ---
Author Organization [facility] Address [address] [place] [address] Care Team Providers Care Passenger Car Conductor Name Role Phone Carol Ch Primary Care Provider Allergies Active Allergy Reactions Criticality Noted Date Comments Penicillins 09/13/2022 Medications Emollient (Aquaphor Adv Therapy Healing) ointmentIndica tions:Rash of genital area Apply 1 Dose topically if needed in the morning and at bedtime (rash). 100 g 1 09/13/19 23 Active Antacid/Antiga s 400-400-40 MG/10ML oral suspension Take 5 mL by mouth if needed in the morning, at noon, in the evening, and at bedtime. 07/18/20 22 Discontinued Active Problems Problem Noted Date Diagnosed Date Gastroesophageal reflux disease 04/06/2022 Low blood pressure 04/06/2022 Pruritus of genital organs 04/06/2022 Encounters Date Type Department Care Team Description 11/22/2024 Patient Outreach [address] [phone] Carol Ch ANP 11/14/2024 Patient Outreach [address] [address] Carol Ch ANP Care Coordination (CM/CHW outreach) 10/31/2024 Patient Outreach [address] [phone] Carol Ch ANP Care Coordination (CM/CHW outreach) 10/28/2024 Patient Outreach [address] [address] Carol Ch ANP Care Coordination (CM/CHW outreach) 10/28/2024 Patient Outreach [address] [address] Carol Ch ANP Care Coordination (CHW Chart Review) 10/28/2024 Patient Outreach [facility] [address] [place] [address] Carol Ch ANP Care Coordination (C3CM- chart review) 10/28/2024 Patient Outreach [facility] [address] [place] [address] Carol Ch ANP 10/11/[address] [facility] () [address] [address] Provider, Population Health Generic from Last 3 Months Social History Tobacco Use Types Packs/Day Years Used Date Smoking Tobacco: Every Day Cigarettes Smokeless Tobacco: Never Tobacco Cessation:Ready to Q uit: Not Asked; Counseling Given: Not Answered Sex and Gender Information Value Date Recorded Sex Assigned at Male 05/30/2022 10:16 AM EDT Legal Sex Male 10:16 AM EDT Gender Identity Choose not to disclose 10:16 AM EDT Sexual Orientation Choose not to disclose 2021 10:16 AM EDT Last Filed Vital Signs Vital Sign Reading Time Taken Comments Blood Pressure 96/64 11/11/2022 9:36 AM EDT Pulse 63 11/11/2022 9:36 AM EDT Temperature 36.2 ??C (97.2 ??F) 11/11/2022 9:36 AM ED T Respiratory Rate 18 11/11/2022 9:36 AM EDT Oxygen Saturation 98% 11/11/2022 9:36 AM EDT Inhaled Oxygen Concentration - - Weight 51 kg (112 lb 6.4 oz) 11/11/2022 9:36 AM EDT Height 162.6 cm (5' 4 ) 09/13/2022 10:27 AM EST Body Mass Index 19.29 09/13/2022 10:27 AM EST Plan of Treatment Health Maintenance Due Date Last Done Comments Depression Screening 1982 HIV Screening 1982 SDOH Screening 1982 Alcohol/Substance Use Screening 1994 Family Planning (PISQ) 1997 Hepatitis C Screening 2000 Pneumococcal Vaccine: Pediatrics (0 to 5 Years) and At-Risk Patients (6 to 49) Years) (1 of 2 - PCV) 2001 Tobacco Screening 10/08/2023 10/07/2022 COVID-19 Vaccine ( season) 2024 01/01/2021, 12/04/2020 Influenza Vaccine (#1) 2024 07/10/2019 Lipid Panel 04/09/2026 04/09/2021 DTaP/Tdap/Td Vaccines (7 - Td or Tdap) 07/10/2029 07/10/2019, 08/13/2012, 02/28/2008, Additional history exists Zoster Vaccines (1 of 2) 2032 RSV Patients and Patients Aged 60 years or older (1 - 1-dose 75+ series) 2057 IPV Vaccines Completed 03/31/1987, 07/1986, 02/28/1985, Additional history exists Hepatitis B Vaccines Completed 02/09/2001, 10/10/2000, 07/27/1998, Additional history exists HIB Vaccines Aged Out No longer eligi ble based on patient's age to complete this topic HPV Vaccines Aged Out No longer eligi ble based on patient's age to complete this topic Hepatitis A Vaccines Aged Out No long er eligible based on patient's age to complete this topic Meningococcal Vaccine Aged Out No julieta gaviota eligible based on patient's age to complete this topic RSV under 20 months Aged Out No longe r eligible based on patient's age to complete this topic Rotavirus Vaccines Aged Out No longer eligible based on patient's age to complete this topic Procedures Procedure Name Priority Date/Time Associated Diagnosis Comments LIPID PANEL, STANDARD Routine 04/09/2021 1:10 PM EDT from Last 3 Months or Most Recently Relevant to Health Maintenance Results * LIPID PANEL, STANDARD (04/09/2021 1:10 PM EDT) Chol/HDLC Ratio 3.1 <5.0 (calc) [facility] Cholesterol, Total 140 <200 mg/dL [facility] HDL Cholesterol 45 > OR = 40 mg/dL [facility] LDL Cholesterol 81 mg/dL (calc) [facility] Comment: Reference range: <100 ?? Desirable range <100 mg/dL for primary prevention; ?? <70 mg/dL for patients with CHD or diabetic patients ?? with > or = 2 CHD risk factors. ?? LDL-C is now calculated using the Candace ?? calculation, which is a validated novel method providing ?? better accuracy than the Friedewald equation in the ?? estimation of LDL-C. ?? Shaun العراقي et al. BERNIE. 2013;310(19): 7270-4468 ?? (http://education.[employer]/faq/MJT151) Non-HDL Cholesterol 95 <130 mg/dL (calc) [facility] Comment: For patients with diabetes plus 1 major ASCVD risk ?? factor, treating to a non-HDL-C goal of <100 mg/dL ?? (LDL-C of <70 mg/dL) is considered a therapeutic ?? option. Triglycerides 62 <150 mg/dL [facility] 04/09/2021 1:10 PM EDT us [facility] LAB BLOOD ORDERABLES Final Resul t [facility] [address] from Last 3 Months or Most Recently Relevant to Health Maintenance Insurance [facility] C3 HSN FULL Care Teams Passenger Car Conductor Relationship Specialty Start Date End Date Carol Ch ANP [address] [place] [phone] PCP - General Family Medicine 07/10/19
--- OUTSIDE RECORDS SUMMARY | 2024-12-10 12:26 | XMS_ITS ---
Author Organization [facility] Address [address] [place] [address] Care Team Providers Care Sweatband Separator Name Role Phone Carol Ch Primary Care Provider [phone] Complex Status:Outreach In Progress (Enrolling) Start date:10/28/2024 Enrollment reason:ADT Feed Overview ED- Pt went to [facility] on 10/25/24. Case Team Name Relationship Phone Yael Chapman RN Registered Nurse(Responsible S taff) [phone] Continued Care and Services Coordination
== END 2024-12-10 11:51 | disposition home or self-care (01) ==
PROVIDERS: Emergency Provider Student in an Organized Health Care Education/Training Program
DX: H61.23 Impacted cerumen, bilateral (principal); H92.03 Otalgia, bilateral
CPT/HCPCS: 69209; 99283